=== PATIENT | female | born 1995 | race Caucasian/White ===

== ENCOUNTER 2019-10-19 09:46 | Emergency (ER) | payer OTHER, BC ==
[~2019-10-19] VITALS: Ht 165.1 cm; Wt 79.5 kg
--- NOTE | 2019-10-19 10:30 | ED GU-Female ---
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 Patient was found to have a positive urine test was sent to the emergency room for a OB sonogram. The horse got here does not have sonogram services on the weekends or holidays. Patient's last menstrual period was on August 07, 2019. Expected date of confinement would be May 14, 2020. 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 Hernadez. She denies any other medical problems no cardiovascular or pulmonary renal or GI disease. She did have spotting around Christmastime. She had some discomfort in her low abdomen for the past 2 days. Urinalysis at the urgent care clinic was negative for urinary tract infection. Patient has a child that was born on May 29, 2014. Patient also reports minimal spotting and has taken ibuprofen for the spotting. She has been recommended to follow up with her SEWING DEMONSTRATOR doctor and stop taking any ibuprofen and avoid aspirin. Timing/Duration: yesterday (pain is suprapubic mild) Severity/Quality: mild, aching Location: suprapubic Radiation: none Activities at Onset: none Sexual [place] History: single partner Modifying Factors: Improves With Analgesics (ibuprofen) Associated Symptoms: abdominal pain (minimal discomfort suprapubic area) Allergies and Home Medications Allergies Coded Allergies: No Known Drug Allergies (Unverified , 10/19/19) Patient Home Medication List Home Medication List Reviewed: Yes Review of Systems Review of Systems Constitutional: other (minimal suprapubic discomfort with spotting) EENTM: no symptoms reported Respiratory: no symptoms reported Cardiovascular: no symptoms reported Gastrointestinal: see HPI Genitourinary: other (positive urine test and minimal suprapubic discomfort with spotting last menstrual period August 07, 2019) : Yes Expected Date of Delivery: May 14, 2020 LMP: Aug 07, 2019 (Based on patient's recollection) Musculoskeletal: no symptoms reported Skin: no symptoms reported Psychiatric/Neurological: No Symptoms Reported Endocrine: No Symptoms Reported Hematologic/Lymphatic: No Symptoms Reported Past Ktvruxl-Ftxazn-Hnyttr Hx Patient Social History Alcohol Use: Rarely Uses Recreational Drug Use: No Smoking Status: Never a Smoker Recent Hopitalizations: No Seasonal Allergies Seasonal Allergies: No Past Medical History Surgeries: No Respiratory: No Cardiac: No Neurological: No Hx : 2 Hx Para: 1 Genitourinary: No Gastrointestinal: No Musculoskeletal: No Endocrine: No HEENT: No Cancer: No Psychosocial: No Integumentary: No Blood Disorders: No Physical Exam Vital Signs Vital Signs - First Documented 10/19/19 09:50 Temp 36.8 Pulse 103 Resp 16 B/P (MAP) 156/92 (113) Pulse Ox 98 O2 Delivery Room Air Capillary Refill : Height, Weight, BMI Height: '" Weight: lbs. oz. kg; BMI Method: General Appearance: WD/WN, no apparent distress HEENT: PERRL/EOMI, normal ENT inspection Neck: non-tender, full range of motion Cardiovascular: regular rate, rhythm, no edema Respiratory: chest non-tender, lungs clear Gastrointestinal: normal bowel sounds Genital/Rectal: No blood at urethral meatus, No decreased rectal tone, No heme positive stool, No tenderness, No other (did not feel a genital examination was appropriate at this time patient has minimal discomfort and only minimal spotting and will follow-up patient wanted to have an ultrasound this can be done by Dr. Pink) Rectal: deferred (she did not need a genital or rectal exam) Back: normal inspection, no CVA tenderness Extremities: normal range of motion Neurologic/Psychiatric: cook chief II-XII nml as tested Skin: normal color Lymphatic: no adenopathy Progress/Results/Core Measures Suspected Sepsis SIRS Temperature: Pulse: Respiratory Rate: Blood Pressure / Mean: Results/Orders Lab Results Urine test was positive [id number] testing Micro Results No other labs done we do not have ultrasound services at this time My Orders Orders - ANDREINA AHMADI DO Urine Bedside (10/19/19 10:33) Patient will follow-up with Dr. Pink rest fluids avoid ibuprofen or any other nonsteroidal anti-inflammatory agents no aspirin Medications Given in ED No medications given Vital Signs/I&O 10/19/19 10/19/19 09:50 10:58 Temp 36.8 36.8 Pulse 103 95 Resp 16 16 B/P (MAP) 156/92 (113) 148/88 (113) Pulse Ox 98 98 O2 Delivery Room Air Room Air Capillary Refill : Less than 1 second Progress Note : Time: 10:34 Progress Note 25-year-old 2 para 1 female presents with amenorrhea since last menstrual period of August 07, 2019. Patient was found with a positive test. She had some spotting minimal also had some suprapubic discomfort. Patient's last child was born May [birth year], 2014. Patient will follow- up with Dr. Pink for PROJECT ASSOCIATE services Follow-up with PCP to: Discuss Further Options (patient will follow up with her PROJECT ASSOCIATE Dr. Pink for continued evaluation and possible ultrasound. Patient was advised to rest and clear fluids avoid ibuprofen or nonsteroidal anti- inflammatory agents) Departure Communication (Admissions) Patient has suprapubic discomfort with minimal spotting positive test last menstrual period was August 07, 2019 expected date of confinement is May 14, 2020 per PROJECT ASSOCIATE provider is Dr. Pink and she will follow-up with him patient wanted to have an ultrasound will be to not have sonography available today. Impression Primary Impression: test positive Additional Impression: Suprapubic pain Disposition: HOME, SELF-CARE Condition: Stable Departure-Patient Inst. Decision time for Depature: 10:37 Referrals: ERIC HERNADEZ DO Patient has no need for continued inpatient care she has been discharged to outpatient care with Dr. Hernadez for follow-up for OB services. If he decides to have an ultrasound he can order it. Patient Instructions: Activity During , Symptoms Add. Discharge Instructions: All discharge instructions reviewed with patient and/or family. Voiced understanding. She is excused from work for the next 3 days and will follow-up with her PROJECT ASSOCIATE doctor Copy Copies To 1: ERIC HERNADEZ ANTHONY H DO Oct 19, 2019 10:30
[2019-10-19 10:58] VITALS: BP 148/88
== END 2019-10-19 10:58 | disposition home or self-care (01) ==
LOC: ER FS 09:48
DX: R10.30 Lower abdominal pain, unspecified (principal); Z32.01 Encounter for pregnancy test, result positive
CPT/HCPCS: 84703; 99282

== ENCOUNTER 2019-12-07 13:40 | Emergency (ER) | payer OTHER, BC ==
[~2019-12-07] VITALS: Ht 171.8 cm; Wt 82.7 kg
--- NOTE | 2019-12-07 14:10 | ED General ---
General Stated Complaint: SPOTTING/CRAMPING 11 WKS PREG History of Present Illness Date Seen by Provider: Dec 07, 2019 Time Seen by Provider: 14:07 Initial Comments Patient is a 24-year-old at 11 weeks gestation who comes to the emergency department today complaining of some right-sided pelvic cramping. Patient has noticed an increase in right-sided pelvic cramps over the last 3 days. She assoc iates it with some work she has been doing at her job. Today however she noted some spotting of red blood. She states only when she urinates she notices some blood on the tissue paper. She also complains of some increasing and thickening of vaginal discharge which is not normal. No fever. No severe pain. She has no nausea or vomiting and has been eating and drinking normally. She has been with the same sexual partner for 1 year. Allergies and Home Medications Allergies Coded Allergies: No Known Drug Allergies (Unverified , 10/19/19) Patient Home Medication List Home Medication List Reviewed: Yes Review of Systems Review of Systems Constitutional: no symptoms reported EENTM: no symptoms reported Respiratory: no symptoms reported Cardiovascular: no symptoms reported Genitourinary: see HPI Musculoskeletal: no symptoms reported Skin: no symptoms reported All Other Systems Reviewed Negative Unless Noted: Yes Past Wdzeqya-Zneiws-Bwjeox Hx Patient Social History Recent Foreign Travel: No Contact w/Someone Who Travel: No Recent Hopitalizations: No Seasonal Allergies Seasonal Allergies: No Past Medical History Surgeries: No Respiratory: No Cardiac: No Neurological: No Genitourinary: No Gastrointestinal: No Musculoskeletal: No Endocrine: No HEENT: No Cancer: No Psychosocial: No Integumentary: No Blood Disorders: No Physical Exam Vital Signs Vital Signs - First Documented 12/07/19 14:14 Temp 36.8 Pulse 83 Resp 18 B/P (MAP) 125/81 (96) Pulse Ox 99 Capillary Refill : Height, Weight, BMI Height: '" Weight: lbs. oz. kg; 29.00 BMI Method: General Appearance: No Apparent Distress, WD/WN HEENT: PERRL/EOMI, TMs Normal Neck: Supple Respiratory: Lungs Clear Cardiovascular: Regular Rate, Rhythm Gastrointestinal: Non Tender, Soft Genital/Rectal: Other (vaginal mucosa is moist and uninflamed. Cervical os is visualized to be closed and no bleeding is present. There is some thick yellow discharge emanating from the cervical os. No significant cervical motion tenderness or adnexal tenderness) Neurologic/Psychiatric: Alert, Oriented x3 Skin: Normal Color Progress/Results/Core Measures Suspected Sepsis SIRS Temperature: Pulse: Respiratory Rate: Blood Pressure / Mean: Results/Orders Lab Results Laboratory Tests Test 12/07/19 14:05 12/07/19 14:30 12/07/19 14:54 Range/Units Human Chorionic Gonadotropin, Quant [id number] H <5 MIU/ML Urine Color YELLOW Urine Clarity CLEAR Urine pH 6.0 5-9 Urine Specific [place] <1.005 1.016-1.022 Urine Protein NEGATIVE NEGATIVE Urine Glucose (UA) NEGATIVE NEGATIVE Urine Ketones NEGATIVE NEGATIVE Urine Nitrite NEGATIVE NEGATIVE Urine Bilirubin NEGATIVE NEGATIVE Urine Urobilinogen 0.2 < = 1.0 MG/DL Urine Leukocyte Esterase NEGATIVE NEGATIVE Urine RBC (Auto) NEGATIVE NEGATIVE Urine RBC NONE /HPF Urine WBC NONE /HPF Urine Squamous Epithelial Cells 0-2 /HPF Urine Crystals NONE /LPF Urine Bacteria NONE /HPF Urine Casts NONE /LPF Urine Mucus NEGATIVE /LPF Urine Culture Indicated NO Micro Results Microbiology 12/07/19 Wet Prep - Final, Complete My Orders Orders - ADAN BOOKER DO Urinalysis (12/07/19 13:54) Abo Rh Type (12/07/19 13:54) Hcg,Quantitative (12/07/19 13:54) Chlam Dna Probe (12/07/19 13:54) Neisseria Gonorrhea Swab (12/07/19 13:54) Wet Prep (12/07/19 13:54) Ceftriaxone For Im Use (Rocephin For Im (12/07/19 15:30) Lidocaine 1% Inj 20 Ml (Xylocaine 1% Inj (12/07/19 15:30) Azithromycin Tablet (Zithromax Tablet) (12/07/19 15:30) Vital Signs/I&O 12/07/19 14:14 Temp 36.8 Pulse 83 Resp 18 B/P (MAP) 125/81 (96) Pulse Ox 99 Capillary Refill : Progress Note : Time: 14:10 Progress Note Patient is seen and examined. Pelvic examination was completed and is accompanied by registered nurse. Exam is documented above. No acute findings but some suspicion for cervicitis based on discharge. No bleeding. We'll check urinalysis, type and screen, quantitative hCG. Bedside ultrasound is also completed and revealing for an intrauterine with heart tones in the 150s. 15:30: All results are reviewed. No evidence for UTI. Based on available data, the patient's does not seem to be threatened today. There is some suspicion based on her physical exam for an infectious process which may be the cause of her symptoms. Other causes including dehydration were discussed with the patient. Given the pelvic exam findings, the patient is empirically treated for gonorrhea and Chlamydia in the ER. These tests were collected and sent to the lab. Patient will follow up on results. I recommended that she refrain from sexual activity until her diagnosis is more clear or the tests have returned. 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 All of her questions were answered and she is agreeable to this plan of care. Departure Impression Primary Impression: Pelvic pain affecting Disposition: 01 HOME, SELF-CARE Condition: Improved Departure-Patient Inst. Referrals: NO,LOCAL PHYSICIAN (PCP/Family) Primary Care Physician ADAN BOOKER DO Dec 07, 2019 14:10
[2019-12-07 15:18] LABS: CLARITY,URINE CLEAR; COLOR,URINE YELLOW; GLUCOSE, URINE (UA) NEGATIVE (NEGATIVE); PROTEIN,URINE NEGATIVE (NEGATIVE)
[2019-12-07 15:19] LABS: BILIRUBIN,URINE NEGATIVE (NEGATIVE); KETONES,URINE NEGATIVE (NEGATIVE); LEUKOCYTE ESTERASE ,URINE NEGATIVE (NEGATIVE); NITRITE,URINE NEGATIVE (NEGATIVE); SQUAMOUS EPITHELIAL CELL,UR 0-2 /HPF
[2019-12-07] MEDS ORDERED: cefTRIAXone 250 MG/ML vial (IM ONLY) IM ONE (15:30)
[2019-12-07] MEDS ORDERED: LIDOCAINE 1% INJ 20 ML 20 ML VIAL INJ ONE (15:30)
[2019-12-07] MEDS ORDERED: AZITHROMYCIN 250 MG TAB (ZITHROMAX) PO ONE (15:30)
[2019-12-07 16:10] VITALS: BP 125/81
== END 2019-12-07 16:10 | disposition home or self-care (01) ==
LOC: EDUNIT# 13:40 → ER FS 13:42
DX: O26.891 Other specified pregnancy related conditions, first trimester (principal); R10.2 Pelvic and perineal pain; Z3A.11 11 weeks gestation of pregnancy
CPT/HCPCS: 36415; 81000; 84702; 86900; 86901; 87210; 87491; 87591; 99284

== ENCOUNTER 2019-12-16 07:36 | Emergency (ER) | payer OTHER, BC ==
[~2019-12-16] VITALS: Ht 165 cm; Wt 83.0 kg
[2019-12-16 07:55] VITALS: BP 138/82
--- NOTE | 2019-12-16 08:02 | ED Abdominal Pain ---
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 Stasis me going on for about a week or so. Patient was just seen in the emergency department just a few days ago for vaginal discharge and had a negative evaluation. Patient has also been seen by her WATER TRUCK DRIVER Dr. moore and also advised that she's had normal exams. heart tones today are 158. Patient appears to be describing round ligament pain. We'll get a urinalysis to evaluate for infection and evaluate. Further as needed. Timing/Duration: 5-6 Days Severity/Quality: Mild, Cramping Location: Suprapubic Radiation: No Radiation Activities at Onset: None Allergies and Home Medications Allergies Coded Allergies: No Known Drug Allergies (Unverified , 10/19/19) Patient Home Medication List Home Medication List Reviewed: Yes Review of Systems Review of Systems Constitutional: no symptoms reported EENTM: No Symptoms Reported; No See HPI, No Blurred Vision, No Double Vision, No Eye Pain, No Eye Tearing, No Ear Drainage, No Ear Pain, No Mouth Pain, No Mouth Swelling, No Nose Congestion, No Nose Pain, No Throat Pain, No Throat Swelling, No Other Respiratory: No Symptoms Reported; Denies See HPI, Denies Cough, Denies Orthopnea, Denies Shortness of Air, Denies SOA With Exertion, Denies SOA at Rest, Denies Stridor, Denies Wheezing, Denies Other Cardiovascular: Denies No Symptoms Reported, Denies See HPI, Denies Chest Pain, Denies Edema, Denies Irregular Heart Rate, Denies Lightheadedness, Denies Palpitations, Denies Syncope, Denies Other Gastrointestinal: Abdominal Pain Genitourinary: Denies No Symptoms Reported, Denies See HPI, Denies Burning; Discharge; Denies Drainage, Denies Frequency, Denies Flank Pain, Denies Hematuria, Denies Incontinence; Pain; Denies Urgency, Denies Other Musculoskeletal: No no symptoms reported, No see HPI, No back pain, No gout, No joint pain, No joint swelling, No muscle pain, No muscle stiffness, No muscle cramps, No muscle twitching, No muscle weakness, No neck pain, No other Skin: No no symptoms reported, No see HPI, No change in color, No change in hair/nails, No dryness, No hx of skin cancer, No lesions, No lumps, No pruritus, No rash, No other Past Mmxhzgu-Yhishb-Hquzvo Hx Patient Social History Recent Foreign Travel: No Contact w/Someone Who Travel: No Recent Hopitalizations: No Seasonal Allergies Seasonal Allergies: No Past Medical History Surgeries: No Respiratory: No Cardiac: No Neurological: No Genitourinary: No Gastrointestinal: No Musculoskeletal: No Endocrine: No HEENT: No Cancer: No Psychosocial: No Integumentary: No Blood Disorders: No Physical Exam Vital Signs Vital Signs - First Documented 12/16/19 07:55 Temp 36.7 Pulse 85 Resp 16 B/P (MAP) 138/82 (100) Pulse Ox 100 Capillary Refill : Height/Weight/BMI Height: '" Weight: lbs. oz. kg; 28.00 BMI Method: General Appearance: WD/WN, no apparent distress HEENT: PERRL/EOMI, normal ENT inspection, TMs normal, pharynx normal Neck: non-tender, full range of motion, supple, normal inspection Respiratory: chest non-tender, lungs clear, normal breath sounds, no respiratory distress, no accessory muscle use Cardiovascular: normal peripheral pulses, regular rate, rhythm, no edema, no gallop, no JVD, no murmur Gastrointestinal: normal bowel sounds, non tender, soft, no organomegaly, no pulsatile mass Progress/Results/Core Measures Results/Orders Lab Results Laboratory Tests Test 12/16/19 07:42 Range/Units Urine Color PALE YELLOW Urine Clarity CLEAR Urine pH 6.5 5-9 Urine Specific [place] <=1.005 1.016-1.022 Urine Protein NEGATIVE NEGATIVE Urine Glucose (UA) NEGATIVE NEGATIVE Urine Ketones NEGATIVE NEGATIVE Urine Nitrite NEGATIVE NEGATIVE Urine Bilirubin NEGATIVE NEGATIVE Urine Urobilinogen 0.2 < = 1.0 MG/DL Urine Leukocyte Esterase NEGATIVE NEGATIVE Urine RBC (Auto) NEGATIVE NEGATIVE Urine RBC NONE /HPF Urine WBC NONE /HPF Urine Squamous Epithelial Cells 5-10 /HPF Urine Crystals NONE /LPF Urine Bacteria MODERATE H /HPF Urine Casts NONE /LPF Urine Mucus NEGATIVE /LPF Urine Culture Indicated NO My Orders Orders - ADAN PHAM MD Urinalysis (12/16/19 07:57) Vital Signs/I&O 12/16/19 07:55 Temp 36.7 Pulse 85 Resp 16 B/P (MAP) 138/82 (100) Pulse Ox 100 Progress Progress Note : Progress Note Patient has been declined to have a pelvic exam. Patient states she had a pelvic exam in the ER this past week with negative swabs for any signs of infection. P atient also states she has been seen by her WATER TRUCK DRIVER for the same with a negative exam. Patient states she is here concerning for bilateral cramping. Patient describes her ligament pain. Patient's urinalysis shows that she has moderate bacteria. A come from her vaginal discharge. We will go ahead and treat her with Flagyl and have her follow up with WATER TRUCK DRIVER. Departure Impression Primary Impression: Round ligament pain Additional Impression: Bacterial vaginosis Disposition: HOME, SELF-CARE Condition: Stable Departure-Patient Inst. Referrals: NO,LOCAL PHYSICIAN (PCP/Family) Primary Care Physician Patient Instructions: Bacterial Vaginosis (DC) Add. Discharge Instructions: Encourage by mouth fluids. Sleep on side with legs drawn wraparound pillow. Use heating pads as tolerated. At the pain will route decrease as persist. Tylenol as needed for pain or cramping. Follow-up with your WATER TRUCK DRIVER in 2-3 days. Wear clothing and help support abdomen due to while lifting at work. All discharge instructions reviewed with patient and/or family. Voiced understanding. Scripts Metronidazole (Flagyl) 500 Mg Tablet 500 MG PO BID for 7 Days, #14 TAB 0 Refills Prov: ADAN PHAM MD 12/16/19 ADAN PHAM MD Dec 16, 2019 08:02
[2019-12-16 08:18] LABS: BILIRUBIN,URINE NEGATIVE (NEGATIVE); CLARITY,URINE CLEAR; COLOR,URINE PALE YELLOW; GLUCOSE, URINE (UA) NEGATIVE (NEGATIVE); KETONES,URINE NEGATIVE (NEGATIVE); LEUKOCYTE ESTERASE ,URINE NEGATIVE (NEGATIVE); NITRITE,URINE NEGATIVE (NEGATIVE); PH,URINE 6.5 (5-9); PROTEIN,URINE NEGATIVE (NEGATIVE)
[2019-12-16 08:21] LABS: BACTERIA,URINE MODERATE /HPF
[2019-12-16] MEDS ORDERED: METR500T PO (08:26)
== END 2019-12-16 08:32 | disposition home or self-care (01) ==
LOC: EDUNIT# 07:36 → ER FS 07:38
DX: O26.891 Other specified pregnancy related conditions, first trimester (principal); R10.2 Pelvic and perineal pain; O23.591 Infection of other part of genital tract in pregnancy, first trimester; N76.0 Acute vaginitis; Z3A.12 12 weeks gestation of pregnancy
CPT/HCPCS: 81000

== ENCOUNTER 2020-01-12 18:38 | Emergency (ER) | payer OTHER, BC ==
[~2020-01-12] VITALS: Ht 167 cm; Wt 85.9 kg
[~2020-01-12 18:38] MED LIST: METR500T PO
--- NOTE | 2020-01-12 18:49 | ED General ---
General Stated Complaint: 18 WKS /CRAMPING History of Present Illness Date Seen by Provider: Jan 12, 2020 Time Seen by Provider: 18:48 Initial Comments Patient is a 24 y/o female who is at 18 weeks gestation who comes to the ER c/o abdominal cramping. She has had this problem over the last four weeks or greater but sx worsened over the last two days. Patient was seen in this ER about 1 month earlier for similar presentation. At that time, she had negative gonorrhea and chlamydia testing. This evening, she denies any loss of fluid or bleeding. She describes intermittent pain in the pelvic area that feels crampy. She has no fever. No flank pain. No headaches or vision changes. She states her symptoms are sometimes worse at work where she does have to do heavy lifting. Allergies and Home Medications Allergies Coded Allergies: No Known Drug Allergies (Unverified , 10/19/19) Home Medications Cephalexin 500 Mg Capsule, 500 MG PO QID Prescribed by: ADAN BOOKER on 01/12/201914 Cyclobenzaprine HCl 10 Mg Tablet, 10 MG PO BID Prescribed by: ADAN BOOKER on 01/12/201915 Metronidazole 500 Mg Tablet, 500 MG PO BID Prescribed by: ADAN PHAM on 12/16/19 0826 Patient Home Medication List Home Medication List Reviewed: Yes Review of Systems Review of Systems Constitutional: no symptoms reported EENTM: no symptoms reported Respiratory: no symptoms reported Cardiovascular: no symptoms reported Gastrointestinal: no symptoms reported, other (pelvic cramps) Genitourinary: no symptoms reported : Yes Musculoskeletal: no symptoms reported Skin: no symptoms reported All Other Systems Reviewed Negative Unless Noted: Yes Past Uctlgkx-Pxtvuv-Mrsejg Hx Patient Social History 2nd Hand Smoke Exposure: No Recent Foreign Travel: No Contact w/Someone Who Travel: No Recent Hopitalizations: No Seasonal Allergies Seasonal Allergies: No Past Medical History Surgeries: No Respiratory: No Cardiac: No Neurological: No Genitourinary: No Gastrointestinal: No Musculoskeletal: No Endocrine: No HEENT: No Cancer: No Psychosocial: No Integumentary: No Blood Disorders: No Physical Exam Vital Signs Vital Signs - First Documented 01/12/20 18:45 Temp 36.7 Pulse 83 Resp 18 B/P (MAP) 129/78 (95) Pulse Ox 100 O2 Delivery Room Air Capillary Refill : Height, Weight, BMI Height: '" Weight: lbs. oz. kg; 30.00 BMI Method: General Appearance: No Apparent Distress, WD/WN HEENT: PERRL/EOMI, Moist Mucous Membranes Neck: Full Range of Motion Respiratory: Lungs Clear Cardiovascular: Regular Rate, Rhythm Gastrointestinal: Non Tender, Soft Extremity: Normal Capillary Refill Neurologic/Psychiatric: Alert, Oriented x3 Skin: Normal Color Progress/Results/Core Measures Suspected Sepsis SIRS Temperature: Pulse: Respiratory Rate: Blood Pressure / Mean: Results/Orders Lab Results Laboratory Tests Test 01/12/20 18:50 Range/Units Urine Color YELLOW Urine Clarity CLOUDY H Urine pH 7.5 5-9 Urine Specific [place] 1.015 L 1.016-1.022 Urine Protein NEGATIVE NEGATIVE Urine Glucose (UA) NEGATIVE NEGATIVE Urine Ketones NEGATIVE NEGATIVE Urine Nitrite NEGATIVE NEGATIVE Urine Bilirubin NEGATIVE NEGATIVE Urine Urobilinogen 0.2 < = 1.0 MG/DL Urine Leukocyte Esterase TRACE H NEGATIVE Urine RBC (Auto) NEGATIVE NEGATIVE Urine RBC NONE /HPF Urine WBC 5-10 H /HPF Urine Squamous Epithelial Cells 10-25 H /HPF Urine Crystals NONE /LPF Urine Bacteria LARGE H /HPF Urine Casts NONE /LPF Urine Mucus NEGATIVE /LPF Urine Culture Indicated YES My Orders Orders - ADAN BOOKER DO Urinalysis (01/12/20 18:49) Chlamydia Trachomatis Urine (01/12/20 18:49) Neis Mayo Dna Urine Test (01/12/20 18:49) Urine Culture (01/12/20 18:50) Cephalexin Capsule (Keflex Capsule) (01/12/20 19:15) Vital Signs/I&O 01/12/20 18:45 Temp 36.7 Pulse 83 Resp 18 B/P (MAP) 129/78 (95) Pulse Ox 100 O2 Delivery Room Air Capillary Refill : Progress Note : Time: 19:26 Progress Note Patient is evaluated in the emergency department for intermittent cramping during . Patient does not have loss of blood or fluid. In the ER, she underwent urinalysis and gonorrhea and Chlamydia screens were again collected and sent to lab. Patient was encouraged to do a dirty catch urine so that we could collect gonorrhea and chlamydia. The urine was contaminated with multiple squamous epithelial cells but also multiple bacteria were present. This probably represents contaminated sample which was the intent but the patient is empirically placed on Keflex for treatment of UTI. She is given some Flexeril. I explained to the patient that she should contact her primary OB doctor in the morning and return to the ER if she begins to have any fluid or blood loss or severely worsening symptoms. Patient was agreeable to the plan of care and all of her questions were answered prior to discharge home. Departure Impression Primary Impression: Pelvic pain affecting Disposition: HOME, SELF-CARE Condition: Stable Departure-Patient Inst. Referrals: NO,LOCAL PHYSICIAN (PCP/Family) Primary Care Physician Scripts Cyclobenzaprine HCl (Cyclobenzaprine HCl) 10 Mg Tablet 10 MG PO BID for Cramps, #20 TAB Prov: ADAN BOOKER DO 01/12/20 Cephalexin (Cephalexin) 500 Mg Capsule 500 MG PO QID for 10 Days, #40 CAP Prov: ADAN BOOKER DO 01/12/20 ADAN BOOKER DO Jan 12, 2020 18:49
[2020-01-12 19:00] LABS: BACTERIA,URINE LARGE /HPF; BILIRUBIN,URINE NEGATIVE (NEGATIVE); CLARITY,URINE CLOUDY; COLOR,URINE YELLOW; GLUCOSE, URINE (UA) NEGATIVE (NEGATIVE); KETONES,URINE NEGATIVE (NEGATIVE); LEUKOCYTE ESTERASE ,URINE TRACE (NEGATIVE); NITRITE,URINE NEGATIVE (NEGATIVE); PH,URINE 7.5 (5-9); PROTEIN,URINE NEGATIVE (NEGATIVE)
[2020-01-12] MEDS ORDERED: CEPH500C PO (19:15)
[2020-01-12] MEDS ORDERED: CEPHALEXIN 250 MG (KEFLEX) CAP PO ONE (19:15)
[2020-01-12] MEDS ORDERED: CYCL10TA9 PO (19:16)
[2020-01-12 19:23] VITALS: BP 129/78
== END 2020-01-12 19:23 | disposition home or self-care (01) ==
LOC: EDUNIT# 18:38 → ER FS 18:41
DX: O26.892 Other specified pregnancy related conditions, second trimester (principal); R10.2 Pelvic and perineal pain; Z3A.18 18 weeks gestation of pregnancy
CPT/HCPCS: 36415; 81000; 87088; 87491; 87591; 99283

== ENCOUNTER 2020-02-07 01:09 | Emergency (ER) | payer OTHER, BC ==
[~2020-02-07] VITALS: Ht 157.4 cm; Wt 88.0 kg
[~2020-02-07 01:09] MED LIST changes: +CEPH500C PO; +CYCL10TA9 PO
[2020-02-07 01:10] VITALS: BP 124/77
--- OUTSIDE RECORDS SUMMARY | 2020-02-07 01:18 | XMS REPORT | Continuity of Care Document ---
Author Organization Unknown Address Unknown Phone Unavailable Allergies Active Description Code Type Severity Reaction Onset Reported/Identified Relationship to Patient Clinical Status Yes No Known Drug Allergies [id number] Drug Allergy Unknown N/A 10/19/2019 Medications There is no data. Problems Date Dx Coded Attending Type Code Diagnosis Diagnosed By 10/19/2019 ANDREINA AHMADI DO Ot R10.30 LOWER ABDOMINAL PAIN, UNSPECIFIED 10/19/2019 ANDREINA AHMADI DO Ot Z32.01 ENCOUNTER FOR TEST, RESULT POS 10/22/2019 GALDINO ANDREINA POWER Ot R10.30 LOWER ABDOMINAL PAIN, UNSPECIFIED 10/22/2019 GALDINO ANDREINA POWER Ot Z32.01 ENCOUNTER FOR TEST, RESULT POS 12/07/2019 [facility] O26.891 OTH RELATED CONDITIONS, FIRST 12/07/2019 [facility] Ot R10 .2 PELVIC AND PERINEAL PAIN 12/07/2019 [facility] Ot Z3A.11 11 WEEKS GESTATION OF 12/12/2019 [facility] Ot O26.891 OTH RELATED CONDITIONS, FIRST 12/12/2019 [facility] Ot R10 .2 PELVIC AND PERINEAL PAIN 12/12/2019 [facility] Ot Z3A.11 11 WEEKS GESTATION OF 12/16/2019 Ot N76.0 ACUT E VAGINITIS 12/16/2019 Ot O23.591 IN FECTION OTH PRT GENITL TRCT IN PREGNAN 12/16/2019 Ot O26.891 OT H RELATED CONDITIONS, FIRST 12/16/2019 Ot R10.2 PELV IC AND PERINEAL PAIN 12/16/2019 Ot Z3A.12 12 WEEKS GESTATION OF 01/12/2020 [facility] Ot O26.892 OTH RELATED CONDITIONS, SECOND 01/12/2020 [facility] Ot R10 .2 PELVIC AND PERINEAL PAIN 01/12/2020 ADAN BOOKER DO Ot Z3A.18 18 WEEKS GESTATION OF 01/14/2020 ADAN BOOKER DO Ot O26.892 OTH RELATED CONDITIONS, SECOND 01/14/2020 ADAN BOOKER DO Ot R10 .2 PELVIC AND PERINEAL PAIN 01/14/2020 ADAN BOOKER DO Ot Z3A.18 18 WEEKS GESTATION OF Procedures There is no data. Results Test Result Range CULTURE, URINE - 06/02/19 07:47 CULTURE, URINE, ROUTINE SEE NOTE NRG SUREPATH PAP RFX HPV mRNA E6/E7 - 16:13 CLINICAL INFORMATION: NRG LMP: NRG PREV. PAP: NRG PREV. BX: NRG SOURCE: Cervix NRG STATEMENT OF ADEQUACY: NRG INTERPRETATION/RESULT: NRG REPORTING ANALYST: NRG COMMENT NRG SUREPATH PAP RFX HPV mRNA E6/E7 - 13:21 CLINICAL INFORMATION: NRG LMP: NRG PREV. PAP: NRG PREV. BX: NRG SOURCE: Cervix NRG STATEMENT OF ADEQUACY: NRG INTERPRETATION/RESULT: NRG REPORTING ANALYST: NRG COMMENT NRG RUBELLA IMMUNE STATUS - 10/22/19 15:09 RUBELLA ANTIBODY (IGG) <0.90 index NRG Microscopic examination by wet preparati on - 12/07/19 14:05 WET PREP RESULTS NUMEROUS WBC'S OBSERVED NRG Chlamydia trachomatis DNA detection by p robe and signal amplification method - 12/07/19 14:05 Chlamydia trachomatis DNA detection by p robe and target amplification method Not Detected Not Detected Neisseria gonorrhoeae DNA detection by p robe and signal amplification method - 12/07/19 14:05 Gonorrhea amp DNA-urine Not Detected No t Detected Serum or plasma choriogonadotropin measu rement (units/volume) - 12/07/19 14:30 Serum or plasma choriogonadotropin measurement (units/ volume) 108051 m[iU]/mL <5 Complete urinalysis with reflex to cultu re - 12/07/19 14:54 Urine color determination YELLOW NRG Urine clarity determination CLEAR NR G Urine pH measurement by test strip 6.0 5-9 Specific gravity of urine by test strip < 1.016-1.022 Urine protein assay by test strip, semi-quantitative NEGATIVE NEGATIVE Urine glucose detection by automated test strip NE GATIVE NEGATIVE Erythrocytes detection in urine sediment by light micr oscopy NEGATIVE NEGATIVE Urine ketones detection by automated test strip NE GATIVE NEGATIVE Urine nitrite detection by test strip NEGATIVE NEGATIVE Urine total bilirubin detection by test strip NEGA TIVE NEGATIVE Urine urobilinogen measurement by automated test strip (mass/volume) 0.2 mg/dL < = 1.0 Urine leukocyte esterase detection by dipstick NEG ATIVE NEGATIVE Automated urine sediment erythrocyte cou nt by microscopy (number/high power field) NONE NRG Automated urine sediment leukocyte count by microscopy (number/high power field) NONE NRG Bacteria detection in urine sediment by light microsco py NONE NRG Squamous epithelial cells detection in u rine sediment by light microscopy 0-2 NRG Crystals detection in urine sediment by light microsco py NONE NRG Casts detection in urine sediment by light microscopy NONE NRG Mucus detection in urine sediment by light microscopy NEGATIVE NRG Complete urinalysis with reflex to culture NO NRG ABO+Rh group - 12/07/19 15:00 WRISTBAND NUMBER [id number] NRG ABO+Rh group BP NRG Complete urinalysis with reflex to cultu re - 01/12/20 18:50 Urine color determination YELLOW NRG Urine clarity determination CLOUDY NR G Urine pH measurement by test strip 7.5 5-9 Specific gravity of urine by test strip 1.015 1.016-1.022 Urine protein assay by test strip, semi-quantitative NEGATIVE NEGATIVE Urine glucose detection by automated test strip NE GATIVE NEGATIVE Erythrocytes detection in urine sediment by light micr oscopy NEGATIVE NEGATIVE Urine ketones detection by automated test strip NE GATIVE NEGATIVE Urine nitrite detection by test strip NEGATIVE NEGATIVE Urine total bilirubin detection by test strip NEGA TIVE NEGATIVE Urine urobilinogen measurement by automated test strip (mass/volume) 0.2 mg/dL < = 1.0 Urine leukocyte esterase detection by dipstick TRA CE NEGATIVE Automated urine sediment erythrocyte cou nt by microscopy (number/high power field) NONE NRG Automated urine sediment leukocyte count by microscopy (number/high power field) [HPF] NRG Bacteria detection in urine sediment by light microsco py LARGE NRG Squamous epithelial cells detection in u rine sediment by light microscopy 10-25 NRG Crystals detection in urine sediment by light microsco py NONE NRG Casts detection in urine sediment by light microscopy NONE NRG Mucus detection in urine sediment by light microscopy NEGATIVE NRG Complete urinalysis with reflex to culture YES NRG Bacterial urine culture - 01/12/20 18:50 Bacterial urine culture NG NRG Chlamydia DNA amp probe, urine - 0 18:50 Chlamydia DNA amp probe, urine Not Detected Not Detected Urine Neisseria gonorrhoeae DNA assay - 01/12/20 18:50 Gonorrhea amp DNA-urine Not Detected No t Detected Encounters ACCT No. Visit Date/Time Discharge Status Pt. Type Provider Facility Loc./Unit Complaint [id number] 01/21/2020 14:45:00 01/21/2020 23:59:5 9 [facility] [id number] 10/22/2019 13:15:00 Document Registration [id number] 07/17/2019 16:00:00 Document Registration [id number] 06/02/2019 07:30:00 Document Registration [id number] 01/12/2020 18:41:00 020 19:23:00 DIS Emergency ADAN BOOKER DO Via [facility] ER FS 18 WKS /CRAMPIN G [id number] 12/07/2019 13:42:00 020 16:10:00 DIS Emergency ADAN BOOKER DO Via [facility] ER FS SPOTTING/CRAMPING 11 WK S PREG [id number] 10/19/2019 09:48:00 020 10:58:00 DIS Emergency ANDREINA AHMADI DO Via [facility] ER FS ABD PAIN - JUST FOUND O UT SHE WAS PREG [id number] 12/16/2019 07:38:00 Document Registration [id number] 10/12/2013 19:27:00 4 20:51:00 DIS Emergency
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
== END 2020-02-07 01:32 | disposition home or self-care (01) ==
LOC: EDUNIT# 01:09 → ER FS 01:13
DX: T74.11XA Adult physical abuse, confirmed, initial encounter (principal); O26.892 Other specified pregnancy related conditions, second trimester; R10.33 Periumbilical pain; Z3A.21 21 weeks gestation of pregnancy; Y04.2XXA Assault by strike against or bumped into by another person, initial encounter; Y07.499 Other family member, perpetrator of maltreatment and neglect

== ENCOUNTER 2020-04-17 16:42 | Emergency (ER) | payer OTHER, BC, MEDICAID ==
[~2020-04-17] VITALS: Ht 165 cm; Wt 95.0 kg
--- NOTE | 2020-04-17 17:00 | ED GI ---
General Stated Complaint: ABD CRAMPS/ Source of Information: Patient Exam Limitations: No Limitations History of Present Illness Date Seen by Provider: Apr 17, 2020 Time Seen by Provider: 17:00 Initial Comments Patient is a 24-year-old at 31 weeks and 6 days who presents with abdominal cramping onset about noon today. Denies any lower pelvic pain or pressure, denies loss of fluid or vaginal bleeding. Denies uterine contractions. States that she's been on her feet a lot and walking a lot while at work and this she believes started the cramping. Her OB doctor is Dr. Hernadez and she plans to deliver her child in [place]. Allergies and Home Medications Allergies Coded Allergies: No Known Drug Allergies (Unverified , 10/19/19) Home Medications Cephalexin 500 Mg Capsule, 500 MG PO QID Prescribed by: ADAN BOOKER on 01/12/201914 Cyclobenzaprine HCl 10 Mg Tablet, 10 MG PO BID Prescribed by: ADAN BOOKER on 01/12/201915 Metronidazole 500 Mg Tablet, 500 MG PO BID Prescribed by: ADAN PHAM on 12/16/19 0826 Patient Home Medication List Home Medication List Reviewed: Yes Review of Systems Review of Systems Constitutional: No dizziness, No fever, No malaise, No weakness Respiratory: Denies Cough, Denies Shortness of Air Cardiovascular: Denies Chest Pain; Edema; Denies Palpitations, Denies Syncope Gastrointestinal: Abdominal Pain (cramping); Denies Nausea, Denies Vomiting Genitourinary: Denies Drainage, Denies Frequency, Denies Flank Pain, Denies Hematuria, Denies Pain, Denies Urgency; Other (denies pelvic pain, uterine contractions, vaginal bleeding or loss of fluid.) Past Ptbccux-Nmolrn-Gpjume Hx Past Med/Social Hx: Reviewed Nursing Past Med/Soc Hx Patient Social History 2nd Hand Smoke Exposure: No Recent Foreign Travel: No Contact w/Someone Who Travel: No Recent Hopitalizations: No Seasonal Allergies Seasonal Allergies: No Past Medical History Surgeries: No Respiratory: No Cardiac: No Neurological: No Genitourinary: No Gastrointestinal: No Musculoskeletal: No Endocrine: No HEENT: No Cancer: No Psychosocial: No Integumentary: No Blood Disorders: No Physical Exam Vital Signs Capillary Refill : Height/Weight/BMI Height: '" Weight: lbs. oz. kg; 35.00 BMI Method: General Appearance: WD/WN, no apparent distress Gastrointestinal: non tender, soft; No guarding, No rebound, No tenderness; other (size c/w/d. ballotable, not engaged in pelvis.) Departure Impression Primary Impression: Abdominal pain during Qualified Codes: O26.893 - Other specified related conditions, third trimester; R10.9 - Unspecified abdominal pain Disposition: HOME, SELF-CARE Condition: Stable Departure-Patient Inst. Referrals: NO,LOCAL PHYSICIAN (PCP/Family) Primary Care Physician Patient Instructions: Stomach Pain Later in Add. Discharge Instructions: You are advised to go to [facility] to the Labor and Delivery department. We notified them you are on your way ANGIE CHAN DO Apr 17, 2020 17:00
[2020-04-17 17:04] VITALS: BP 137/71
--- NOTE | 2020-04-17 17:08 | NUR ---
Report called to Xavier GILMORE in L&D of patient discharge and plan to be driven to [facility] for assessment of abd cramping pain since noon. Denies bleeding or loss of fluid. Pt states, "I was unsure where to go to see if I am in labor as unsure about this cramping." Dr Kapoor in to see patient promptly after placed in room. Pt denies pressure or pain in vaginal area.
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
== END 2020-04-17 17:09 | disposition home or self-care (01) ==
LOC: EDUNIT# 16:42 → ER FS 16:43
DX: O26.893 Other specified pregnancy related conditions, third trimester (principal); R10.9 Unspecified abdominal pain; Z3A.31 31 weeks gestation of pregnancy
CPT/HCPCS: 99282

== ENCOUNTER 2020-06-08 17:33 | Inpatient (IN) | payer OTHER, BC, MEDICAID ==
[~2020-06-08] VITALS: Ht 165 cm; Wt 95.0 kg
[2020-06-08] VITALS (26 sets, daily range): BP systolic 85–175; BP diastolic 44–95
--- NOTE | 2020-06-08 17:40 | NUR ---
PORTIA LOPEZ presented to unit ambulatory from home, accompanied by boyfriend, for INDUCTION. PORTIA LOPEZ weighed, gowned, voided, and to bed. EFHM and TOCO applied, VS taken. PORTIA LOPEZ oriented to bed controls, call light, TV, heat, and A/C controls.
[2020-06-08] MEDS ORDERED: D5 LR IV SOLUTION 1,000 ML IV ONE (18:00)
[2020-06-08] MEDS ORDERED: PREN-142 PO (18:22)
[2020-06-08 18:53] LABS: BASOPHILS % (AUTO) 0 % (0-10); EOSINOPHILS # (AUTO) 0.1 10^3/uL (0.0-0.3); EOSINOPHILS % (AUTO) 0 % (0-10); HEMATOCRIT 41 % (35-52); HEMOGLOBIN 14.1 G/DL (11.5-16.0); LYMPHOCYTES # (AUTO) 2.3 X 10^3 (1.0-4.0); LYMPHOCYTES % (AUTO) 18 % (12-44); MEAN CORPUSCULAR HEMOGLOBIN 30 PG (25-34); MEAN CORPUSCULAR HGB CONC 34 G/DL (32-36); MEAN CORPUSCULAR VOLUME 87 FL (80-99); MEAN PLATELET VOLUME 9.9 FL (7.4-10.4); MONOCYTES # (AUTO) 0.9 X 10^3 (0.0-1.0); MONOCYTES % (AUTO) 7 % (0-12); NEUTROPHILS % (AUTO) 75 % (42-75); PLATELET COUNT 306 10^3/uL (130-400); WHITE BLOOD COUNT 13.2 10^3/uL (4.3-11.0)
[2020-06-08] MEDS: D5 LR IV SOLUTION 1,000 ML IV SCH (19:29)
[2020-06-08] MEDS ORDERED: LACTATED RINGERS 1,000 ML IV SCH (19:31)
[2020-06-08] MEDS ORDERED: MISOPROSTOL 100 MCG (CYTOTEC) TAB PO ONE (19:45)
[2020-06-08] MEDS ORDERED: MISOPROSTOL 100 MCG (CYTOTEC) TAB ONE (20:08)
[2020-06-08] MEDS ORDERED: fentaNYL 2 mcg/ml BUPIVA 0.125 100 ML ONE (21:02)
[2020-06-08] MEDS ORDERED: fentaNYL INJECTION 100 MCG/2 ML AMP ONE (21:25)
[2020-06-08] MEDS ORDERED: CATHETER FLUSH 10 ML SYR IV SCH (22:00)
[2020-06-08] MEDS ORDERED: LACTATED RINGERS 1,000 ML IV ONE (22:22)
[2020-06-08] MEDS ORDERED: fentaNYL 2 mcg/ml BUPIVA 0.125 100 ML IV SCH (22:22)
--- NOTE | 2020-06-08 22:24 | NUR ---
pt starting to feel lightheaded, bp 80's/50's ephedrine pulled, pt states she is starting to feel a little better. Ephedrine dose held at this time. Fluid bolus infusing
[2020-06-08] MEDS ORDERED: NALOXONE 0.4 MG/ML 1 ML (NARCAN) VIAL IV PRN (22:30)
[2020-06-08] MEDS ORDERED: ONDANSETRON 4 MG/2 ML (SDV) Z0FRAN IV PRN (22:30)
[2020-06-08] MEDS ORDERED: CATHETER FLUSH 10 ML SYR IV PRN (22:30)
--- NOTE | 2020-06-08 23:05 | History & Physical-OB/GYN ---
History of Present Illness History of Present Illness Reason for visit/HPI Ms. Parish, A0 at 39 2/7 weeks, presents for cervical ripening and induction of labor Date of Admission Jun 08, 2020 at 17:33 Date Seen by a Provider: Jun 08, 2020 Time Seen by a Provider: 19:30 I consulted on this patient on 06/08/20 22:59 Attending Physician Best Hernadez DO Admitting Physician Best Hernadez DO Consult Allergies and Home Medications Allergies Coded Allergies: No Known Drug Allergies (Unverified , 10/19/19) Patient Home Medication List Home Medication List Reviewed: Yes Past Mytmmjx-Gxcerf-Nhfgbl Hx Patient Social History Marrital Status: single Number of Children: 1 Number of living children: 1 Employed/Student: employed Alcohol Use: Denies Use Recreational Drug Use: No Smoking Status: Never a Smoker 2nd Hand Smoke Exposure: No Physical Abuse Screen: No Sexual Abuse: No Recent Foreign Travel: No Contact w/other who traveled: No Recent Hopitalizations: No Recent Infectious Disease Expo: No Immunizations Up To Date Pediatric: Yes Seasonal Allergies Seasonal Allergies: No Surgeries No Respiratory No Cardiovascular No Neurological No Reproductive System Expected Date of Delivery: Jun 13, 2020 Hx : 2 Hx Para: 1 Hx Total # of Abortions (Spona: 0 Hx Reproductive Disorders: No Sexually Transmitted Disease: Yes (History of Syphilis--treated) HIV/AIDS: No Genitourinary No Gastrointestinal No Musculoskeletal No Endocrine History of Endocrine Disorders: No HEENT History of HEENT Disorders: No Cancer No Psychosocial History of Psychiatric Problem: No Integumentary History of Skin or Integumenta: No Blood Transfusions History of Blood Disorders: No Adverse Reaction to a Blood Tr: No Family Medical History Family Hx: Patient reports no known family medical history. Review of Systems Constitutional: see HPI Physical Exam Physical Exam Vital Signs Vital Signs Date Time Temp Pulse Resp B/P (MAP) Pulse Ox O2 Delivery O2 Flow Rate FiO2 06/08/20 18:52 36.4 103 18 97 Room Air Capillary Refill : Less Than 3 Seconds Labs Laboratory Tests 06/08/20 18:15: White Blood Count 13.2H, Red Blood Count 4.75, Hemoglobin 14.1, Hematocrit 41, Mean Corpuscular Volume 87, Mean Corpuscular Hemoglobin 30, Mean Corpuscular Hemoglobin Concent 34, Red Cell Distribution Width 13.8, Platelet Count 306, Mean Platelet Volume 9.9, Neutrophils (%) (Auto) 75, Lymphocytes (%) (Auto) 18, Monocytes (%) (Auto) 7, Eosinophils (%) (Auto) 0, Basophils (%) (Auto) 0, Neutrophils # (Auto) 10.0H, Lymphocytes # (Auto) 2.3, Monocytes # (Auto) 0.9, Eosinophils # (Auto) 0.1, Basophils # (Auto) 0.0 General Appearance: No Apparent Distress, WD/WN Respiratory: Chest Non Tender, Lungs Clear, Normal Breath Sounds Cardiovascular: Regular Rate, Rhythm, No Murmur Abdominal: normal bowel sounds, non tender Labia: WNL Vagina: WNL Cervix: WNL Cervix OS: open (3 cm) Uterus: WNL, Enlarged (Gravid) Extremity: Normal Range of Motion, Non Tender, No Calf Tenderness Assessment/Plan Assessment and Plan Assessment: Intrauterine at 39 2/7 weeks Plan: Cytotec cervical ripening followed by Pitocin Induction. AROM. Epidural for antepartum pain management. Vaginal delivery expected Admission Diagnosis Admission Status: Inpatient Order (span 2 midnights) Reason for Inpatient Admission: Cytotect Cervical Ripening at 39 2/7 weeks Clinical Quality Measures DVT/VTE Risk/Contraindication: Risk Factor Score Per Nursin RFS Level Per Nursing on Admit: 1=Low/No VTE BEST MILNER DO Jun 08, 2020 23:05
[2020-06-08] MEDS ORDERED: MISOPROSTOL 100 MCG (CYTOTEC) TAB PO SCH (23:45)
[2020-06-09] VITALS (22 sets, daily range): BP systolic 93–169; BP diastolic 51–85
[2020-06-09] MEDS ORDERED: OXYTOCIN PRE-MIX DRIP 500 ML IV ONE (00:06)
[2020-06-09] MEDS ORDERED: OXYTOCIN PRE-MIX DRIP 500 ML IV SCH ×2 (00:17→04:01)
[2020-06-09] MEDS: D5 LR IV SOLUTION 1,000 ML IV SCH (01:35)
[2020-06-09] MEDS ORDERED: LIDOCAINE 1% INJ 20 ML 20 ML VIAL ONE ×2 (02:48→02:49)
--- NOTE | 2020-06-09 04:07 | OB Labor & Delivery Record ---
Vag Delivery Note Vag Delivery Note Date of Delivery: 06/09/20 Preoperative Diagnosis: Xavier Parish is a (24 /Para 2 / 1,Gestational Age (wks)39 3/7 weeks Postoperative Diagnosis: Same Surgeon: ERIC CRUZ Electrical Maintenance Engineer: [None] Anesthesia: [Epidural and Local] Delivery Type: [Normal Spontaneous Vaginal Delivery with Midline Episiotomy and Standard Repair] Findings: [Male] Viable [Male] infant, apgars [8, 9], weight [8 lb 3 oz] Lacerations: Midline Episiotomy Intact placenta with 3 vessel cord. No nuchal cord, body cord or shoulder dystocia Estimated Blood Loss: [300] ml Complications: None Condition: Stable Description of Procedure: The patient is a 24 year old female who presented [cervical ripening]. She was admitted and informed consent was obtained. Her labor course was unremarkable. She progressed to complete dilatation and began to push. She was then set up for delivery. The infant's head was delivered atraumatically in the [YOAN] position. The shoulders and remainder of the 's body were then delivered without difficulty. Upon delivery, the head was held below the level of the perineum and the mouth and nares were bulb suctioned. The cord was doubly clamped and cut and the infant was handed off to the pediatric staff where NRP protocol was followed. An intact placenta with 3-vessel cord delivered via Bella and there was found to be minimal bleeding.~ Vigorous fundal massage was performed and the fundus was found to be firm. IV oxytocin was given. Examination of the vagina and perineum revealed just a midline episiotomy with no laceration extension, repaired in the usual fashion with 2-0 and 3-0 vicryl suture. Following the repair, sponge, instrument and needle counts were correct. Mom and baby were both in stable condition in the labor suite. Vitals - Labs Vital Signs - I&O Vital Signs Date Time Temp Pulse Resp B/P (MAP) Pulse Ox O2 Delivery O2 Flow Rate FiO2 06/09/20 02:05 89 18 169/60 (96) Room Air 06/09/20 01:50 99 18 125/69 (87) Room Air 06/09/20 01:35 88 18 123/73 (90) 06/09/20 01:20 83 18 102/65 (77) 9/8/20 01:05 36.0 87 18 115/73 (87) 06/09/20 00:35 78 18 93/51 (65) 06/09/20 00:15 89 18 109/59 (76) 06/09/20 00:00 72 18 118/52 (74) 06/08/20 23:45 71 18 113/59 (77) 06/08/20 23:30 93 18 114/56 (75) 06/08/20 23:05 75 18 99/55 (70) 98 06/08/20 23:00 75 18 96/46 (63) 98 06/08/20 22:55 88 18 94/56 (69) 98 06/08/20 22:50 72 18 90/44 (59) 98 06/08/20 22:45 82 18 100/54 (69) 98 06/08/20 22:35 93 18 90/54 (66) 98 06/08/20 22:30 74 18 96/52 (67) 100 06/08/20 22:25 36.0 73 18 85/47 (60) 100 06/08/20 22:23 62 18 85/50 (62) 100 06/08/20 22:20 54 18 87/50 (62) 100 06/08/20 22:15 69 18 87/53 (64) 100 06/08/20 22:10 62 18 94/51 (65) 100 06/08/20 22:05 77 18 109/55 (73) 100 06/08/20 21:58 127 18 128/60 (82) 100 06/08/20 21:53 113 18 127/80 (96) 100 06/08/20 21:47 93 18 137/79 (98) 100 06/08/20 21:44 96 18 145/86 (105) 100 06/08/20 21:39 96 18 137/95 (109) 100 06/08/20 21:36 96 18 164/73 (103) 100 06/08/20 21:33 89 18 175/70 (105) 100 06/08/20 21:25 97 18 159/66 (97) 06/08/20 21:05 88 18 131/78 (95) 06/08/20 20:25 83 18 122/66 (84) 06/08/20 18:52 36.4 103 18 97 Room Air Labs Laboratory Tests 06/08/20 18:15: White Blood Count 13.2H, Red Blood Count 4.75, Hemoglobin 14.1, Hematocrit 41, Mean Corpuscular Volume 87, Mean Corpuscular Hemoglobin 30, Mean Corpuscular Hemoglobin Concent 34, Red Cell Distribution Width 13.8, Platelet Count 306, Mean Platelet Volume 9.9, Neutrophils (%) (Auto) 75, Lymphocytes (%) (Auto) 18, Monocytes (%) (Auto) 7, Eosinophils (%) (Auto) 0, Basophils (%) (Auto) 0, Neutrophils # (Auto) 10.0H, Lymphocytes # (Auto) 2.3, Monocytes # (Auto) 0.9, Eosinophils # (Auto) 0.1, Basophils # (Auto) 0.0 ERIC CRUZ DO Jun 09, 2020 04:07
[2020-06-09] MEDS ORDERED: TETANUS,DIPTH,PERTUSS P/F (BOOSTRIX) 0.5 ML VIAL IM ONE (04:15)
[2020-06-09] MEDS ORDERED: DIBUCAINE (NUPERCAINAL) 1% OINT 30 GM TOP PRN (04:15)
[2020-06-09] MEDS ORDERED: BENZOCAINE/MENTHOL (DERMOPLAST) 60 ML CAN TP PRN (04:15)
[2020-06-09] MEDS ORDERED: WITCH HAZEL(TUCKS) 40 EA JAR TOP PRN (04:15)
[2020-06-09] MEDS ORDERED: MEASLES,MUMPS,RUBELLA 1 EA INJ SQ ONE (04:15)
[2020-06-09] MEDS: IBUPROFEN 800 MG (MOTRIN) TAB PO SCH ×3 (04:36→20:46)
[2020-06-09] MEDS: ACETAMINOPHEN 500 MG TAB (TYLENOL) PO SCH ×3 (04:36→18:01)
--- NOTE | 2020-06-09 05:00 | NUR ---
pt c/o pain in perineum. Ice pack applied.
--- NOTE | 2020-06-09 05:49 | NUR ---
Pericare completed. ff 1 below. light rubra noted. pad changed, panties applied. pt assisted to w'c and taken down to 312. Pt denies urge to void at this time. Pt assisted into bed. orientated to room. info papers discussed. Pt denies any needs at this time. Will continue to monitor.
[2020-06-09] MEDS ORDERED: CATHETER FLUSH 10 ML SYR IV SCH (06:00)
--- NOTE | 2020-06-09 07:05 | NUR ---
Pt up to the bathroom. Positive void. pericare completed. pt assisted back to bed. Denies any problems at this time.
--- NOTE | 2020-06-09 08:25 | NUR ---
SALINE CLOCK D/C'ED. SITE CLEAR. EATING BREAKFAST.
--- NOTE | 2020-06-09 09:00 | NUR ---
A.M. ASSESSMENT COMPLETED. VSS. CARING FOR IN ROOM.
[2020-06-09] MEDS: PRENATAL VITAMIN 1 EA TAB PO SCH (09:23)
[2020-06-09] MEDS: DOCUSATE SODIUM 100 MG (COLACE) CAP PO SCH ×2 (09:23→20:46)
--- NOTE | 2020-06-09 12:00 | NUR ---
CONTINUES TO CARE FOR IN ROOM. TAKING BOTTLE WELL.
--- NOTE | 2020-06-09 17:51 | NUR ---
EATING STORK MEAL. CARING FOR INFANT IN ROOM. PT CONCERNED ABOUT NOT HAVING A BM YET. PT REASSURED AGAIN. NURSERY RN WILL COME VISIT WITH PT. MMR AND TDAP VACCINES GIVEN.
[2020-06-10 01:40] VITALS: BP 104/62
[2020-06-10] MEDS: ACETAMINOPHEN 500 MG TAB (TYLENOL) PO SCH ×3 (01:40→14:20)
[2020-06-10] MEDS: IBUPROFEN 800 MG (MOTRIN) TAB PO SCH ×2 (04:18→11:54)
[2020-06-10] MEDS ORDERED: ACET-93 PO (06:50)
[2020-06-10] MEDS ORDERED: IBUP-1780 PO (06:50)
[2020-06-10] MEDS ORDERED: OXYC5TAB96 PO (06:50)
[2020-06-10] MEDS ORDERED: DCS100C PO (06:50)
[2020-06-10 06:54] LABS: BASOPHILS % (AUTO) 0 % (0-10); EOSINOPHILS # (AUTO) 0.1 10^3/uL (0.0-0.3); EOSINOPHILS % (AUTO) 1 % (0-10); HEMATOCRIT 39 % (35-52); HEMOGLOBIN 12.9 G/DL (11.5-16.0); LYMPHOCYTES # (AUTO) 3.7 X 10^3 (1.0-4.0); LYMPHOCYTES % (AUTO) 30 % (12-44); MEAN CORPUSCULAR HEMOGLOBIN 30 PG (25-34); MEAN CORPUSCULAR HGB CONC 34 G/DL (32-36); MEAN CORPUSCULAR VOLUME 89 FL (80-99); MONOCYTES # (AUTO) 0.7 X 10^3 (0.0-1.0); MONOCYTES % (AUTO) 6 % (0-12); NEUTROPHILS # (AUTO) 7.6 X 10^3 (1.8-7.8); NEUTROPHILS % (AUTO) 63 % (42-75); PLATELET COUNT 251 10^3/uL (130-400); WHITE BLOOD COUNT 12.1 10^3/uL (4.3-11.0)
--- NOTE | 2020-06-10 06:58 | Discharge Summary ---
Diagnosis/Chief Complaint Date of Admission Jun 08, 2020 at 17:33 Date of Discharge June 10, 2020 Discharge Date: Jun 10, 2020 Discharge Time: 08:00 Admission Diagnosis Admission Diagnosis Intrauterine at 39 2/7 weeks Discharge Diagnosis Intrauterine at 39 2/7 weeks--delivered 2. Positive RPR Reason Hospital Visit Ms. Parish, A0 at 39 2/7 weeks, presents for cervical ripening and induction of labor Discharge Summary Hospital Course Was the Problem List Reviewed?: Yes Hospital Course Ms. Parish, A0 at 39 2/7 weeks, was admitted for Cytotec Cervical Ripening followed by Pitocin Induction. I artificially rupture her membranes. She received an epidural for antepartum pain management. She progressed to complete and after a short course of pushing delivered a healthy viable . The remainder of her hospitalization was remarkable for a Positive RPR with a 1:8 Titer. She was given IM antibiotics. We will have her follow up in the office in two days for a more antibiotics. The remainder of her hospitalization was unremarkable. I will discharge her to home with instructions, prescriptions, and a follow up appointment. Labs Laboratory Tests 06/08/20 18:15: White Blood Count 13.2H, Neutrophils # (Auto) 10.0H, Syphilis Serology ReactiveH , Rapid Plasma Reagin 1:8H 06/10/20 06:23: Procedures None. Discharge Physical Examination Allergies: Coded Allergies: No Known Drug Allergies (Unverified , 10/19/19) Vitals & I&Os Vital Signs Date Time Temp Pulse Resp B/P (MAP) Pulse Ox O2 Delivery O2 Flow Rate FiO2 06/10/20 01:40 36.5 73 18 104/62 (76) 98 Room Air General Appearance: Alert, Oriented X3, Cooperative HEENT: Atraumatic Cardiovascular: Regular Rate, No Murmurs Abdominal: Normal Bowel Sounds, Soft, No Tenderness Extremities: No Clubbing, No Cyanosis Skin: No Rashes Neuro: Normal Gait, Normal Speech Psych/Mental Status: Mental Status NL Discharge Home Medications Reviewed and agree with Discharge Medication list on patient's Discharge Instruction sheet Instructions to Patient/Family Please see electronic discharge instructions given to patient. Clinical Quality Measures DVT/VTE Risk/Contraindication: Risk Factor Score Per Nursin RFS Level Per Nursing on Admit: 1=Low/No VTE PPX ERIC CRUZ DO Jun 10, 2020 06:58
[2020-06-10] MEDS ORDERED: PEN G BENZ (BICILLIN LA) 1.2 M UN/2 ML SYR IM ONE (07:00)
[2020-06-10 08:00] VITALS: BP 131/83
[2020-06-10] MEDS: PRENATAL VITAMIN 1 EA TAB PO SCH (08:01)
[2020-06-10] MEDS: DOCUSATE SODIUM 100 MG (COLACE) CAP PO SCH (08:01)
--- NOTE | 2020-06-10 08:02 | NUR ---
A.M. ASSESSMENT COMPLETED. VSS. PCN G GIVEN IM ORDERED IN RIGHT VG SITE. SITE CLEAR.
[2020-06-10 14:00] VITALS: BP 127/85
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
--- NOTE | 2020-06-10 17:35 | NUR ---
DISCHARGE INSTRUCTIONS REVIEWED WITH COPY TO PT. RXS GIVEN TO S.O. EARLIER TO GET FILLED. PT STATES HE WILL NOT RETURN UNTIL TOMORROW. PT HAS DENIES PAIN LAST 2 DAYS. STATES UNDERSTANDING OF ALL INSTRUCTIONS AND NEED TO HAVE PCN SHOTS ON MONDAY AND MONDAY INSTRUCTED.
[2020-06-10 18:00] VITALS: BP 127/85
--- NOTE | 2020-06-10 18:00 | NUR ---
DISMISSED FROM WS IN STABLE CONDITION. 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 ROOMING -IN INFORMATION GIVEN TO PT.
--- NOTE | 2020-06-11 15:08 | NUR ---
CM/SS follow up. CM/SS contacted DCF to check if report made by this sw was screened in. They reported that at this time the report was "not assigned" to anyone. CM/SS verified that it was not screened in. The worker stated "no". CM/SS contacted the Nurse in [facility] to give an update. Alem verbalized understanding.
== END 2020-06-10 18:00 | disposition home or self-care (01) | DRG 807 ==
LOC: LDRP 17:33
PROVIDERS: ADMIT Obstetrics & Gynecology; ATTEND Obstetrics & Gynecology
PROC: 10E0XZZ Delivery of Products of Conception, External Approach (ICD-10-PCS; principal; 2020-06-09)
PROC: 0W8NXZZ Division of Female Perineum, External Approach (ICD-10-PCS; 2020-06-09)
PROC: 3E033VJ Introduction of Other Hormone into Peripheral Vein, Percutaneous Approach (ICD-10-PCS; 2020-06-09)
DX: O98.12 Syphilis complicating childbirth (principal); Z37.0 Single live birth; A53.0 Latent syphilis, unspecified as early or late; Z3A.39 39 weeks gestation of pregnancy; Z23 Encounter for immunization
CPT/HCPCS: 36415; 85025; 86592; 86780; 86850; 86900; 86901; 90707; 90715

== ENCOUNTER → 2020-06-17 | Outpatient (CLI) | payer OTHER, BC, MEDICAID ==
[~2020-06-17] MED LIST changes: +ACET-93 PO; +DCS100C PO; +IBUP-1780 PO; +OXYC5TAB96 PO; +PEN G BENZ (BICILLIN LA) 1.2 M UN/2 ML SYR IM ONE; +PREN-142 PO
== END ==
LOC: WSo 17:16
PROVIDERS: ATTEND Obstetrics & Gynecology
DX: Z79.2 Long term (current) use of antibiotics (principal)
CPT/HCPCS: 96372

== ENCOUNTER 2020-12-04 05:36 | Outpatient (RCR) | payer OTHER, BC, MEDICAID ==
[~2020-12-04] VITALS: Ht 167.7 cm; Wt 89.1 kg
[~2020-12-04 05:36] MED LIST changes: +OXC5T PO; -OXYC5TAB96 PO; -PEN G BENZ (BICILLIN LA) 1.2 M UN/2 ML SYR IM ONE
[2020-12-07] MEDS ORDERED: IBUP-1773 PO (07:29)
== END 2020-12-04 11:18 | disposition home or self-care (01) ==
LOC: PREOP 05:36
PROVIDERS: ATTEND Obstetrics & Gynecology
DX: Z01.812 Encounter for preprocedural laboratory examination (principal); O02.1 Missed abortion; Z20.822 Contact with and (suspected) exposure to COVID-19
CPT/HCPCS: 87635

== ENCOUNTER 2020-12-08 11:57 | Emergency (ER) | payer OTHER, BC, MEDICAID ==
[~2020-12-08] VITALS: Ht 165 cm; Wt 88.8 kg
[~2020-12-08 11:57] MED LIST changes: +IBUP-1773 PO
--- NOTE | 2020-12-08 12:55 | ED GU-Female ---
General Chief Complaint: Female Reproductive Stated Complaint: VAGINAL BLEEDING Nursing Triage Note: Patient reports she had a d/c yesterday with Dr. Culp in [place], reports she was 11 weeks and had a miscarriage. She reports two previous uncomplicated full term pregnancies. She states she went back to work at [employer] today, states she does a lot of standing, walking, and heavy lifting. She reports she began bleeding heavily at 0900 and has saturated 4 pads since 0900. She states she has had some small clots, similar to when she is on her period. She reports some generalized cramping and a constant pain in her RLQ rated 6/10. She states she took 600 mg of ibprofen at 1100 today. Nursing Sepsis Screen: No Definite Risk Source: patient History of Present Illness Date Seen by Provider: Dec 08, 2020 Time Seen by Provider: 12:15 Initial Comments 25-year-old female presenting with vaginal bleeding and right-sided cramping. She had a D&C procedure for missed yesterday with Dr. Culp at [facility]. She was doing well and was released to work today with no restrictions. She states around 9 AM she started having vaginal bleeding and has gone through 4 pads since 9 AM. She states she also has had an odor from her vaginal area. He denies any pain with urination. She is concerned because she has not been able to get anyone from Dr. Culp's office to call her back. She came in to be evaluated here in the ED. Allergies and Home Medications Allergies Coded Allergies: No Known Drug Allergies (Unverified , 10/19/19) Home Medications Fluconazole 150 Mg Tablet, 150 MG PO ONCE Prescribed by: EDA HALE on 12/08/20 1347 Ibuprofen 600 Mg Tablet, 600 MG PO Q6H Prescribed by: MARISSA CULP on 12/07/20 5558 Patient Home Medication List Home Medication List Reviewed: Yes Review of Systems Review of Systems Constitutional: No chills, No dizziness, No fever EENTM: no symptoms reported Respiratory: no symptoms reported Cardiovascular: no symptoms reported Gastrointestinal: no symptoms reported Genitourinary: see HPI Musculoskeletal: no symptoms reported Skin: no symptoms reported Psychiatric/Neurological: Anxiety Past Jtsxmcf-Cgtnuv-Ybxpsb Hx Past Med/Social Hx: Reviewed Nursing Past Med/Soc Hx Patient Social History Alcohol Use: Denies Use Smoking Status: Never a Smoker 2nd Hand Smoke Exposure: No Recent Infectious Disease Expo: No Recent Hopitalizations: No Immunizations Up To Date Tetanus Booster (TDap): Unknown PED Vaccines UTD: Yes Seasonal Allergies Seasonal Allergies: No Past Medical History Surgeries: Yes (D/C) Respiratory: No Currently Using CPAP: No Currently Using BIPAP: No Cardiac: No Neurological: No Reproductive Disorders: No Sexually Transmitted Disease: Yes (History of Syphilis--treated) HIV/AIDS: No Genitourinary: No Gastrointestinal: No Musculoskeletal: No Endocrine: No HEENT: No Cancer: No Psychosocial: No Integumentary: No Blood Disorders: No Adverse Reaction/Blood Tranf: No Family Medical History Patient reports no known family medical history. Physical Exam Vital Signs Vital Signs - First Documented 12/08/20 12:05 Temp 37.3 Pulse 81 Resp 20 B/P (MAP) 143/78 (99) Pulse Ox 100 O2 Delivery Room Air Capillary Refill : Less Than 3 Seconds Height, Weight, BMI Height: '" Weight: lbs. oz. kg; 32.00 BMI Method: General Appearance: WD/WN, mild distress (anxious) HEENT: PERRL/EOMI, pharynx normal Neck: non-tender, supple, normal inspection Cardiovascular: normal peripheral pulses, regular rate, rhythm Respiratory: chest non-tender, lungs clear, normal breath sounds Gastrointestinal: soft, no pulsatile mass Pelvic: normal external exam, tender adnexa (right greater than left), tender uterus, vaginal bleeding (pooling in the vaginal vault but no heavy bleeding) Extremities: normal range of motion, normal capillary refill Neurologic/Psychiatric: public speaking professor II-XII nml as tested, alert, oriented x 3, other (anxious) Skin: normal color, warm/dry Progress/Results/Core Measures Suspected Sepsis Recent Fever Within 48 Hours: No Infection Criteria Present: None New/Unexplained Altered Menta: No Sepsis Screen: No Definite Risk SIRS Temperature: Pulse: 81 Respiratory Rate: 20 Blood Pressure 143 /78 Mean: 99 Results/Orders Lab Results Laboratory Tests Test 12/08/20 12:45 Range/Units Urine Color RED H Urine Clarity BLOODY H Urine pH 6.5 5-9 Urine Specific Ralph 1.020 1.016-1.022 Urine Protein TRACE H NEGATIVE Urine Glucose (UA) NEGATIVE NEGATIVE Urine Ketones NEGATIVE NEGATIVE Urine Nitrite NEGATIVE NEGATIVE Urine Bilirubin NEGATIVE NEGATIVE Urine Urobilinogen NORMAL < = 1.0 MG/DL Urine Leukocyte Esterase TRACE H NEGATIVE Urine RBC (Auto) 3+ H NEGATIVE Urine RBC >100 H /HPF Urine WBC RARE /HPF Urine Squamous Epithelial Cells 0-2 /HPF Urine Crystals NONE /LPF Urine Bacteria NEGATIVE /HPF Urine Casts NONE /LPF Urine Mucus NEGATIVE /LPF Urine Culture Indicated NO Micro Results Microbiology 12/08/20 Wet Prep - Final, Complete My Orders Orders - EDA HALE MD Ua Culture If Indicated (12/08/20 12:49) Wet Prep (12/08/20 12:55) Vital Signs/I&O 12/08/20 12/08/20 12:05 13:55 Temp 37.3 Pulse 81 79 Resp 20 16 B/P (MAP) 143/78 (99) 124/73 Pulse Ox 100 100 O2 Delivery Room Air Room Air Capillary Refill : Less Than 3 Seconds Blood Pressure Mean: 99 Progress Note #1: Progress Note check urine and pelvic exam with wet mount. Then will try to check in with Dr. Culp or whoever is chronometer tester for him. Progress Note #2: Progress Note Her urinalysis showed blood but no signs of infection. Wet mount had trace amount of yeast that otherwise no infection. Her pelvic exam was showing some pooling of blood in the vaginal vault but there is no heavy active bleeding. Discussed with Dr. CULP over the phone at 1317 and reviewed findings with him. He stated that it was not unusual for the patient to have some increased pain especially with her being more active going back to work. He stated he had advised her to be off work to allow things to heal and rest. She had told him she wanted to go back to work so that she be less likely to concentrate and worry about the miscarriage. She also had refused any stronger pain medication because they all make her sick and feel worse. He recommended with her normal vital signs and not having copious amounts of bleeding to have her rest and take time off work. Off her pain medicine again for 24 to 48 hours. Follow-up for worsening pain, increasing bleeding, fever or chills. Departure Impression Primary Impression: Acute pelvic pain, female Additional Impressions: S/P dilation and curettage Vaginal bleeding Yeast vaginitis Disposition: 01 HOME, SELF-CARE Condition: Stable Departure-Patient Inst. Decision time for Depature: 13:44 Referrals: NO,LOCAL PHYSICIAN (PCP/Family) Primary Care Physician Patient Instructions: Dilation and Curettage (DC) Add. Discharge Instructions: Try to rest and take it easy for the next few days. Use Ibuprofen and Acetaminophen to help with pain control. If you have worsening pain or increasing symptoms check back with Dr. Culp and his clinic Return to work on Monday unless you have more problems before then. Take the Diflucan (Fluconazole) pill to treat for yeast infection and see if that also helps with your vaginal odor and pain. All discharge instructions reviewed with patient and/or family. Voiced understanding. Scripts Fluconazole (Fluconazole) 150 Mg Tablet 150 MG PO ONCE for Yeast infection for 1 Day, #1 TAB 0 Refills Prov: EDA HALE MD 12/08/20 Work/School Note: Work Release Form Date Seen in the Emergency Department: Dec 08, 2020 Return to Work: Dec 11, 2020 Restrictions: No Restrictions EDA HALE MD Dec 08, 2020 12:55
[2020-12-08 13:09] LABS: CLARITY,URINE BLOODY; COLOR,URINE RED
[2020-12-08 13:10] LABS: BACTERIA,URINE NEGATIVE /HPF; BILIRUBIN,URINE NEGATIVE (NEGATIVE); GLUCOSE, URINE (UA) NEGATIVE (NEGATIVE); KETONES,URINE NEGATIVE (NEGATIVE); LEUKOCYTE ESTERASE ,URINE TRACE (NEGATIVE); NITRITE,URINE NEGATIVE (NEGATIVE); PH,URINE 6.5 (5-9); PROTEIN,URINE TRACE (NEGATIVE); RBC,URINE >100 /HPF; SQUAMOUS EPITHELIAL CELL,UR 0-2 /HPF; WBC,URINE RARE /HPF
[2020-12-08] MEDS ORDERED: FLUC150T2 PO (13:47)
[2020-12-08 13:55] VITALS: BP 124/73
== END 2020-12-08 13:55 | disposition home or self-care (01) ==
LOC: EDUNIT# 11:57 → ER FS 12:00
DX: N93.9 Abnormal uterine and vaginal bleeding, unspecified (principal); B37.3 Candidiasis of vulva and vagina
CPT/HCPCS: 81000; 87210; 99284

== ENCOUNTER 2021-03-22 20:15 | Emergency (ER) | payer OTHER, BC, MEDICAID ==
[~2021-03-22] VITALS: Ht 165.1 cm; Wt 84.5 kg
[~2021-03-22 20:15] MED LIST changes: +FLUC150T2 PO
--- NOTE | 2021-03-22 20:25 | ED GU-Female ---
General Stated Complaint: APPROX 9 WKS PREG/VAG BLEEDING Source: patient History of Present Illness Date Seen by Provider: Mar 22, 2021 Time Seen by Provider: 20:25 Initial Comments PT ARRIVES VIA POV FROM HOME C/O VAGINAL BLEEDING AND CRAMPING --BEGAN 1 HOUR AGO BLOOD ON TISSUE WITH WIPING ONLY, HAS NOT USED ANY PADS PT HAD MISCARRIAGE AND D&C IN NOVEMBER-12/07/20, HAD PERIOD 01/14/21 AND NONE SINCE THEN HAS NOT HAD ANY OB CARE YET, BUT DID HAVE LAB WORK DONE AT DR. 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 Allergies and Home Medications Allergies Coded Allergies: No Known Drug Allergies (Unverified , 10/19/19) Home Medications Fluconazole 150 Mg Tablet, 150 MG PO ONCE Prescribed by: EDA HALE on 12/08/20 1347 Ibuprofen 600 Mg Tablet, 600 MG PO Q6H Prescribed by: MARISSA CULP on 12/07/20 0729 Patient Home Medication List Home Medication List Reviewed: Yes Review of Systems Review of Systems Constitutional: no symptoms reported Respiratory: no symptoms reported Cardiovascular: no symptoms reported Gastrointestinal: see HPI Genitourinary: see HPI : Yes LMP: Jan 14, 2021 Musculoskeletal: no symptoms reported Skin: no symptoms reported Psychiatric/Neurological: No Symptoms Reported Endocrine: No Symptoms Reported Hematologic/Lymphatic: No Symptoms Reported Past Adjnlyt-Gksnvv-Dhoexc Hx Past Med/Social Hx: Reviewed and Corrections made Patient Social History Alcohol Use: Denies Use Drug of Choice: DENIES Smoking Status: Never a Smoker 2nd Hand Smoke Exposure: No Recent Hopitalizations: No Immunizations Up To Date Tetanus Booster (TDap): Unknown PED Vaccines UTD: Yes Seasonal Allergies Seasonal Allergies: No Past Medical History Surgeries: Yes (D&C 12/07/20) Respiratory: No Currently Using CPAP: No Currently Using BIPAP: No Cardiac: No Neurological: No : Yes Last Menstrual Period: Jan 14, 2021 Hx : 4 Hx Para: 2 Hx Total # of Abortions (Sp): 1 (D&C 12/07/20) Reproductive Disorders: No Sexually Transmitted Disease: Yes (History of Syphilis--treated) HIV/AIDS: No Genitourinary: No Gastrointestinal: No Musculoskeletal: No Endocrine: No HEENT: No Cancer: No Psychosocial: No Integumentary: No Blood Disorders: No Adverse Reaction/Blood Tranf: No Family Medical History Patient reports no known family medical history. Physical Exam Vital Signs Vital Signs - First Documented 03/22/21 20:23 Temp 36.5 Pulse 111 Resp 16 B/P (MAP) 148/89 (108) Pulse Ox 100 O2 Delivery Room Air Capillary Refill : Height, Weight, BMI Height: '" Weight: lbs. oz. kg; 32.00 BMI Method: General Appearance: WD/WN, no apparent distress Respiratory: normal breath sounds Gastrointestinal: non tender, soft Pelvic: normal external exam, normal adnexa, no cerv. motion tender, no masses; No tender w/ cervical motion, No tender adnexa; tender uterus; No vaginal bleeding; other (NO BLOOD IN VAGINA OR AT CERVIX. 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 nml as tested, no motor/sensory deficits, alert, normal mood/affect, oriented x 3 Skin: normal color, warm/dry Progress/Results/Core Measures Suspected Sepsis SIRS Temperature: Pulse: Respiratory Rate: Laboratory Tests 03/22/21 20:48: White Blood Count 11.6H Blood Pressure / Mean: Laboratory Tests 03/22/21 20:48: Platelet Count 419H Results/Orders Lab Results Laboratory Tests Test 03/22/21 20:48 03/22/21 21:04 Range/Units White Blood Count 11.6 H 4.3-11.0 10^3/uL Red Blood Count 5.04 3.80-5.11 10^6/uL Hemoglobin 14.0 11.5-16.0 g/dL Hematocrit 43 35-52 % Mean Corpuscular Volume 85 80-99 fL Mean Corpuscular Hemoglobin 28 25-34 pg Mean Corpuscular Hemoglobin Concent 33 32-36 g/dL Red Cell Distribution Width 12.9 10.0-14.5 % Platelet Count 419 H 130-400 10^3/uL Mean Platelet Volume 9.0 9.0-12.2 fL Human Chorionic Gonadotropin, Quant 66323 H <5 MIU/ML Urine Color YELLOW Urine Clarity CLEAR Urine pH 6.5 5-9 Urine Specific [place] <=1.005 1.016-1.022 Urine Protein NEGATIVE NEGATIVE Urine Glucose (UA) NEGATIVE NEGATIVE Urine Ketones NEGATIVE NEGATIVE Urine Nitrite NEGATIVE NEGATIVE Urine Bilirubin NEGATIVE NEGATIVE Urine Urobilinogen 0.2 < = 1.0 MG/DL Urine Leukocyte Esterase NEGATIVE NEGATIVE Urine RBC (Auto) NEGATIVE NEGATIVE Urine RBC NONE /HPF Urine WBC NONE /HPF Urine Squamous Epithelial Cells 0-2 /HPF Urine Crystals NONE /LPF Urine Bacteria NEGATIVE /HPF Urine Casts NONE /LPF Urine Mucus NEGATIVE /LPF Urine Culture Indicated NO My Orders Orders - JUAREZ STOCK DO Cbc No Diff (03/22/21 20:25) Hcg,Quantitative (03/22/21 20:25) Ua Culture If Indicated (03/22/21 21:00) Vital Signs/I&O 03/22/21 20:23 Temp 36.5 Pulse 111 Resp 16 B/P (MAP) 148/89 (108) Pulse Ox 100 O2 Delivery Room Air Capillary Refill : Progress Note : Progress Note BLOOD TYPE B+ NO BLEEDING AND NO CRAMPING DURING ER STAY UNABLE TO OBTAIN HEART TONES BY DOPPLER NO ULTRASOUND AVAILABLE AT THIS HOUR Departure Impression Primary Impression: Threatened in early Disposition: 01 HOME, SELF-CARE Condition: Stable Departure-Patient Inst. Decision time for Depature: 21:30 Referrals: MARISSA CULP DO (PCP/Family) Primary Care Physician Patient Instructions: Bleeding in Early ED Add. Discharge Instructions: HOME, REST NOTHING IN VAGINA--NO TAMPONS, DOUCHING OR INTERCOURSE TYLENOL NEEDED FOR PAIN FOLLOW UP WITH DR. CULP IN 2-3 DAYS FOR FURTHER CARE--CALL IN AM FOR APPOINTMENT JUAREZ STOCK DO Mar 22, 2021 20:25
[2021-03-22 20:58] LABS: HEMATOCRIT 43 % (35-52); MEAN CORPUSCULAR HEMOGLOBIN 28 pg (25-34); MEAN CORPUSCULAR HGB CONC 33 g/dL (32-36); MEAN CORPUSCULAR VOLUME 85 fL (80-99); PLATELET COUNT 419 10^3/uL (130-400); WHITE BLOOD COUNT 11.6 10^3/uL (4.3-11.0)
[2021-03-22 21:10] LABS: BILIRUBIN,URINE NEGATIVE (NEGATIVE); CLARITY,URINE CLEAR; COLOR,URINE YELLOW; GLUCOSE, URINE (UA) NEGATIVE (NEGATIVE); KETONES,URINE NEGATIVE (NEGATIVE); LEUKOCYTE ESTERASE ,URINE NEGATIVE (NEGATIVE); NITRITE,URINE NEGATIVE (NEGATIVE); PH,URINE 6.5 (5-9); PROTEIN,URINE NEGATIVE (NEGATIVE)
[2021-03-22 21:20] LABS: BACTERIA,URINE NEGATIVE /HPF; SQUAMOUS EPITHELIAL CELL,UR 0-2 /HPF
[2021-03-22 21:36] VITALS: BP 124/79
== END 2021-03-22 21:36 | disposition home or self-care (01) ==
LOC: EDUNIT# 20:15 → ER 20:16
DX: O20.0 Threatened abortion (principal); Z3A.09 9 weeks gestation of pregnancy
CPT/HCPCS: 36415; 81000; 84702; 85027

== ENCOUNTER 2021-03-24 18:46 | Emergency (ER) | payer OTHER, BC, MEDICAID ==
[~2021-03-24] VITALS: Ht 165.1 cm; Wt 80.0 kg
[2021-03-24 19:32] LABS: BASOPHILS % (AUTO) 0 % (0-10); EOSINOPHILS # (AUTO) 0.1 10^3/uL (0.0-0.3); EOSINOPHILS % (AUTO) 1 % (0-10); HEMATOCRIT 41 % (35-52); HEMOGLOBIN 13.4 g/dL (11.5-16.0); LYMPHOCYTES # (AUTO) 3.5 10^3/uL (1.0-4.0); LYMPHOCYTES % (AUTO) 29 % (12-44); MEAN CORPUSCULAR HEMOGLOBIN 28 pg (25-34); MEAN CORPUSCULAR HGB CONC 33 g/dL (32-36); MEAN CORPUSCULAR VOLUME 86 fL (80-99); MEAN PLATELET VOLUME 8.8 fL (9.0-12.2); MONOCYTES # (AUTO) 0.6 10^3/uL (0.0-1.0); MONOCYTES % (AUTO) 5 % (0-12); NEUTROPHILS # (AUTO) 7.9 10^3/uL (1.8-7.8); NEUTROPHILS % (AUTO) 65 % (42-75); PLATELET COUNT 365 10^3/uL (130-400); WHITE BLOOD COUNT 12.1 10^3/uL (4.3-11.0)
--- NOTE | 2021-03-24 19:50 | ED GU-Female ---
General Chief Complaint: OB < 20 WEEKS Stated Complaint: 9 WKS PREG - CRAMPING / SPOTTING Nursing Triage Note: Pt arrival to ER with complaint of spotting x4 days. PT states that she is and less than 20 weeks. LMP 01/14/21 Nursing Sepsis Screen: No Definite Risk Source: patient History of Present Illness Date Seen by Provider: Mar 24, 2021 Time Seen by Provider: 19:10 Initial Comments PT ARRIVES VIA POV FROM HOME C/O PINK DISCHARGE--ON TISSUE WITH WIPING ONLY, HAS NOT USED ANY PADS., HAS HAD ON SAME PANTI-LINER ALL DAY AND NO BLOOD ON IT C/O SLIGHT CRAMPING OFF AND ON PT SEEN HERE 03/22/21 FOR SAME PT HAS NOT ATTEMPTED TO FOLLOW UP WITH DR. CULP ADVISED. HAD FIRST OB VISIT SCHEDULED FOR 04/01/21. NO NAUSEA/VOMITING NO FEVER NO URINARY SYMPTOMS SYMPTOMS NO DIFFERENT TODAY Allergies and Home Medications Allergies Coded Allergies: No Known Drug Allergies (Unverified , 10/19/19) Home Medications Fluconazole 150 Mg Tablet, 150 MG PO ONCE Prescribed by: EDA HALE on 12/08/20 1347 Ibuprofen 600 Mg Tablet, 600 MG PO Q6H Prescribed by: MARISSA CULP on 12/07/20 0729 Patient Home Medication List Home Medication List Reviewed: Yes Review of Systems Review of Systems Constitutional: no symptoms reported Respiratory: no symptoms reported Cardiovascular: no symptoms reported Gastrointestinal: no symptoms reported Genitourinary: see HPI : Yes Musculoskeletal: no symptoms reported Skin: no symptoms reported Past Rbiidgy-Ocrthm-Yrpmqd Hx Past Med/Social Hx: Reviewed and Corrections made Patient Social History Alcohol Use: Denies Use Drug of Choice: DENIES Smoking Status: Never a Smoker 2nd Hand Smoke Exposure: No Recent Infectious Disease Expo: No Recent Hopitalizations: No Immunizations Up To Date Tetanus Booster (TDap): Unknown PED Vaccines UTD: Yes Seasonal Allergies Seasonal Allergies: No Past Medical History Surgeries: Yes (D&C 12/07/20) Respiratory: No Currently Using CPAP: No Currently Using BIPAP: No Cardiac: No Neurological: No Reproductive Disorders: No Sexually Transmitted Disease: Yes (History of Syphilis--treated) HIV/AIDS: No Genitourinary: No Gastrointestinal: No Musculoskeletal: No Endocrine: No HEENT: No Cancer: No Psychosocial: No Integumentary: No Blood Disorders: No Adverse Reaction/Blood Tranf: No Family Medical History Patient reports no known family medical history. Physical Exam Vital Signs Vital Signs - First Documented 03/24/21 03/24/21 18:53 20:27 Temp 36.7 Pulse 90 Resp 18 B/P (MAP) 136/94 (108) Pulse Ox 98 O2 Delivery Room Air Capillary Refill : Less Than 3 Seconds Height, Weight, BMI Height: '" Weight: lbs. oz. kg; 29.00 BMI Method: General Appearance: WD/WN, no apparent distress Cardiovascular: regular rate, rhythm, no murmur Respiratory: normal breath sounds Gastrointestinal: non tender, soft Pelvic: normal external exam, no cerv. motion tender, no masses; No vaginal bleeding; other (NO BLOOD IN CANAL, CERVIX CLOSED. VERY SCANT AMOUNT OF NORMAL THIN, WHITE DISCHARGE. ) Extremities: normal inspection Neurologic/Psychiatric: alert, oriented x 3 Skin: normal color, warm/dry Progress/Results/Core Measures Suspected Sepsis Recent Fever Within 48 Hours: No Infection Criteria Present: None New/Unexplained Altered Menta: No Sepsis Screen: No Definite Risk SIRS Temperature: Pulse: 90 Respiratory Rate: 18 Laboratory Tests 03/24/21 19:22: White Blood Count 12.1H Blood Pressure 136 /94 Mean: 108 Laboratory Tests 03/24/21 19:22: Platelet Count 365 Results/Orders Lab Results Laboratory Tests Test 03/24/21 19:22 Range/Units White Blood Count 12.1 H 4.3-11.0 10^3/uL Red Blood Count 4.76 3.80-5.11 10^6/uL Hemoglobin 13.4 11.5-16.0 g/dL Hematocrit 41 35-52 % Mean Corpuscular Volume 86 80-99 fL Mean Corpuscular Hemoglobin 28 25-34 pg Mean Corpuscular Hemoglobin Concent 33 32-36 g/dL Red Cell Distribution Width 12.7 10.0-14.5 % Platelet Count 365 130-400 10^3/uL Mean Platelet Volume 8.8 L 9.0-12.2 fL Immature Granulocyte % (Auto) 0 % Neutrophils (%) (Auto) 65 42-75 % Lymphocytes (%) (Auto) 29 12-44 % Monocytes (%) (Auto) 5 0-12 % Eosinophils (%) (Auto) 1 0-10 % Basophils (%) (Auto) 0 0-10 % Neutrophils # (Auto) 7.9 H 1.8-7.8 10^3/uL Lymphocytes # (Auto) 3.5 1.0-4.0 10^3/uL Monocytes # (Auto) 0.6 0.0-1.0 10^3/uL Eosinophils # (Auto) 0.1 0.0-0.3 10^3/uL Basophils # (Auto) 0.0 0.0-0.1 10^3/uL Immature Granulocyte # (Auto) 0.0 0.0-0.1 10^3/uL Human Chorionic Gonadotropin, Quant H <5 MIU/ML My Orders Orders - JUAREZ STOCK DO Cbc With Automated Diff (03/24/21 19:10) Hcg,Quantitative (03/24/21 19:10) Vital Signs/I&O Capillary Refill : Less Than 3 Seconds Blood Pressure Mean: 108 Progress Note : Progress Note NO ULTRASOUND AVAILABLE AT THIS HOUR Departure Impression Primary Impression: Threatened in early Disposition: 01 HOME, SELF-CARE Condition: Stable Departure-Patient Inst. Decision time for Depature: 20:24 Referrals: MARISSA CULP DO (PCP/Family) Primary Care Physician Patient Instructions: Threatened Miscarriage (DC) Add. Discharge Instructions: LOTS OF FLUIDS TYLENOL NEEDED FOR PAIN FOLLOW UP WITH DR. CULP SCHEDULED OR SOONER IF WORSE All discharge instructions reviewed with patient and/or family. Voiced understanding. JUAREZ STOCK DO Mar 24, 2021 19:50
[2021-03-24 20:27] VITALS: BP 128/90
== END 2021-03-24 20:27 | disposition home or self-care (01) ==
LOC: EDUNIT# 18:46 → ER 18:48
DX: O20.0 Threatened abortion (principal); Z3A.09 9 weeks gestation of pregnancy
CPT/HCPCS: 36415; 84702; 85025; 99282

== ENCOUNTER 2021-06-11 09:17 | Emergency (ER) | payer OTHER, BC, MEDICAID ==
[~2021-06-11] VITALS: Ht 167.7 cm; Wt 88.5 kg
--- NOTE | 2021-06-11 09:23 | ED GU-Female ---
General Stated Complaint: CRAMPING/SUPRAPUBIC PRESSURE DURING PREG History of Present Illness Date Seen by Provider: Jun 11, 2021 Time Seen by Provider: 09:22 Initial Comments 25-year-old female presents with some cramping/suprapubic pressure. Patient reports that she is approximately 17 weeks . She is not having any abnormal vaginal discharge, she is not experiencing any vaginal bleeding. She is not having any vaginal pain. Patient reports she has been on her feet a lot the last 2 days working 12-hour days. She denies any other systemic complaints Allergies and Home Medications Allergies Coded Allergies: No Known Drug Allergies (Unverified , 10/19/19) Patient Home Medication List Home Medication List Reviewed: Yes Fluconazole (Fluconazole) 150 Mg Tablet, 150 MG PO ONCE Prescribed by: EDA HALE on 12/08/20 1347 Ibuprofen (Ibuprofen) 600 Mg Tablet, 600 MG PO Q6H Prescribed by: MARISSA CULP on 12/07/20 0729 Review of Systems Review of Systems Constitutional: No chills, No fever EENTM: no symptoms reported Respiratory: No cough, No short of breath Cardiovascular: no symptoms reported Gastrointestinal: no symptoms reported, abdominal pain; No nausea, No vomiting Genitourinary: no symptoms reported Musculoskeletal: no symptoms reported Skin: no symptoms reported Psychiatric/Neurological: No Symptoms Reported Endocrine: No Symptoms Reported Past Frrzsxy-Lugdbd-Kzxjaz Hx Immunizations Up To Date Tetanus Booster (TDap): Unknown PED Vaccines UTD: Yes Seasonal Allergies Seasonal Allergies: No Past Medical History Surgeries: Yes (D&C 12/07/20) Respiratory: No Currently Using CPAP: No Currently Using BIPAP: No Cardiac: No Neurological: No Reproductive Disorders: No Sexually Transmitted Disease: Yes (History of Syphilis--treated) HIV/AIDS: No Genitourinary: No Gastrointestinal: No Musculoskeletal: No Endocrine: No HEENT: No Cancer: No Psychosocial: No Integumentary: No Blood Disorders: No Adverse Reaction/Blood Tranf: No Family Medical History Patient reports no known family medical history. Physical Exam Vital Signs Vital Signs - First Documented 06/11/21 09:22 Temp 36.4 Pulse 96 Resp 16 B/P (MAP) 137/73 (94) Pulse Ox 100 O2 Delivery Room Air Capillary Refill : Height, Weight, BMI Height: '" Weight: lbs. oz. kg; 29.00 BMI Method: General Appearance: no apparent distress HEENT: PERRL/EOMI Neck: full range of motion, supple Cardiovascular: normal peripheral pulses, regular rate, rhythm Respiratory: lungs clear, normal breath sounds Gastrointestinal: non tender, soft Extremities: normal range of motion, non-tender, normal inspection Neurologic/Psychiatric: alert, normal mood/affect, oriented x 3 Skin: normal color, warm/dry Progress/Results/Core Measures Suspected Sepsis SIRS Temperature: Pulse: Respiratory Rate: Blood Pressure / Mean: Results/Orders Lab Results Laboratory Tests Test 06/11/21 09:22 Range/Units Urine Color YELLOW Urine Clarity SLIGHTLY CLOUDY Urine pH 7.0 5-9 Urine Specific [employer] 1.010 L 1.016-1.022 Urine Protein NEGATIVE NEGATIVE Urine Glucose (UA) NEGATIVE NEGATIVE Urine Ketones NEGATIVE NEGATIVE Urine Nitrite NEGATIVE NEGATIVE Urine Bilirubin NEGATIVE NEGATIVE Urine Urobilinogen 0.2 < = 1.0 MG/DL Urine Leukocyte Esterase 2+ H NEGATIVE Urine RBC (Auto) NEGATIVE NEGATIVE Urine RBC RARE /HPF Urine WBC 0-2 /HPF Urine Squamous Epithelial Cells 2-5 /HPF Urine Crystals NONE /LPF Urine Bacteria MODERATE H /HPF Urine Casts NONE /LPF Urine Mucus NEGATIVE /LPF Urine Yeast FEW H /HPF Urine Culture Indicated YES My Orders Orders - BRANDON OROZCO DO Ua Culture If Indicated (06/11/21 09:23) Vital Signs/I&O 06/11/21 09:22 Temp 36.4 Pulse 96 Resp 16 B/P (MAP) 137/73 (94) Pulse Ox 100 O2 Delivery Room Air Capillary Refill : Progress Note : Progress Note Patient with a urine that is concerning for a UTI along with a yeast infection. Recommend she start bwgq-gik-cvnplnt miconazole or similar vaginal yeast treatment. I will prescribe her Keflex. Patient is not having any vaginal discharge, vaginal pain or vaginal bleeding. Bedside ultrasound showed good movement and a heart rate in the 150s. Discussed with her that if her symptoms worsen, if she develops vaginal bleeding or worsening pain that she should follow-up with her OB or present to the ER. Patient stable discharged Departure Impression Primary Impression: Urinary tract infection Qualified Codes: N30.00 - Acute cystitis without hematuria Additional Impressions: Candidiasis of female genitalia 17 weeks gestation of Disposition: 01 HOME, SELF-CARE Condition: Stable Departure-Patient Inst. Referrals: MARISSA CULP DO (PCP/Family) Primary Care Physician Patient Instructions: Urinary Tract Infections in Add. Discharge Instructions: Follow-up with your primary care provider or retail specialist next week Return to the ER if you develop vaginal pain, vaginal discharge or vaginal bleeding. Scripts Cephalexin (Cephalexin) 500 Mg Tablet 500 MG PO QID, #20 TAB 0 Refills Prov: BRANDON OROZCO DO 06/11/21 BRANDON OROZCO DO Jun 11, 2021 09:23
--- OUTSIDE RECORDS SUMMARY | 2021-06-11 09:24 | XMS REPORT | Clinical Summary ---
Author Author [facility] Organization [facility] Address Unknown Phone Unavailable Care Team Providers Care Underwriting Director Name Role Phone PCP Unavailable Allergies Not on File Medications Not on file Active Problems Not on file Social History Date Tobacco Use Types Packs/Day Years Used Never Assessed Sex Assigned at Date Recorded Not on file Last Filed Vital Signs Not on file Plan of Treatment Not on file Results Not on filefrom Last 3 Months
--- OUTSIDE RECORDS SUMMARY | 2021-06-11 09:24 | XMS REPORT | Clinical Summary ---
Author Author [facility] Address Unknown Phone Unavailable Care Team Providers Care Blue Print Control Clerk Name Role Phone Cici Myrick MD PCP Allergies No known active allergies Medications End Date Status Medication Sig Dispensed Refills Start Date Active citalopram (CELEXA) 20 MG Take 20 mg by 0 tablet mouth daily. Active Pediatric Take 1 tablet 0 Jicbzpzi-Gnhodwrp-L by mouth (MULTIVITAMIN/IRON) CHEW daily. Active folic acid (FOLVITE) 1 MG Take 1 mg by 0 tablet mouth daily. Active QUEtiapine (SEROQUEL) 100 Start at 50mg 60 tablet 0 10/24/201 MG tablet po daily for 4 one week and then switch to 100mg po daily Active Problems Problem Noted Date Bipolar 1 disorder Depression Anxiety Estimated Date of Delivery Comments Yes 05/16/2014 Immunizations Name Administration Dates Next Due Td(adult), adsorbed 10/23/2010 Family History Medical History Relation Name Comments Depression Father Heart disease Paternal pat uncle Grandfather Hypertension Paternal Grandfather Hypertension Paternal Grandmother Relation Name Status Comments Father Paternal Grandfather Paternal Grandmother Social History Date Tobacco Use Types Packs/Day Years Used Never Smoker Smokeless Tobacco: Never Used Tobacco Cessation: Counseling Given: No Comments Alcohol Use Standard Drinks/Week No 0 (1 standard drink = 0.6 o z pure alcohol) Control Partners Comments Sexually Active Never Estimated Date of Delivery Comments Yes 05/16/2014 Sex Assigned at Date Recorded Not on file Last Filed Vital Signs Reading Time Taken Comments Vital Sign 106/78 10/23/2013 1:19 PM SOCIAL MEDIA ANALYST Blood Pressure 76 10/23/2013 1:19 PM SOCIAL MEDIA ANALYST Pulse - - Temperature - - Respiratory Rate - - Oxygen Saturation - - Inhaled Oxygen Concentration 68.1 kg (150 lb 3.2 oz) 10/23/2013 1:19 PM SOCIAL MEDIA ANALYST Weight 167.6 cm (5' 6") 10/23/2013 1:19 PM SOCIAL MEDIA ANALYST Height 24.24 10/23/2013 1:19 PM SOCIAL MEDIA ANALYST Body Mass Index Plan of Treatment Health Maintenance Due Date Last Done Comments Varicella Vaccines (1 of 1997 2 - 2-dose childhood series) HPV Vaccines (1 - 2-dose 2007 series) COVID-19 Vaccine (1) 2008 DTaP,Tdap,and Td Vaccines 10/24/2010 10/23/2010 (2 - Tdap) Hepatitis C Screening 2014 MMR Vaccines-Adult 2015 Cervical Cancer Screening 2017 Influenza Vaccine (#1) 2021 Pneumo-Vaccine: 65+Yrs (1 2061 of 1 - PPSV23) HIB Vaccines Aged Out No longer eligible based on patient's age to complete this topic IPV Vaccines Aged Out No longer eligible based on patient's age to complete this topic Meningococcal Vaccine Aged Out No longer eligib le based on patient's age to complete this topic Pneumo-Vaccine: Peds (0-5 Aged Out No longer el igible based on patient's age to Yrs) & At-Risk Patients complete this topic (6-64 Yrs) Rotavirus Vaccines Aged Out No longer eligible based on patient's age to complete this topic Results Not on filefrom Last 3 Months Insurance Type Payer Benefit Subscriber ID Effective Phone Address Plan / Dates Group [employer] K[employer] [address] [id number] 2005- [phone] [address] Present [address] [place] [address] Advance Directives For more information, please contact: [phone] 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
[2021-06-11 09:32] LABS: BILIRUBIN,URINE NEGATIVE (NEGATIVE); COLOR,URINE YELLOW; GLUCOSE, URINE (UA) NEGATIVE (NEGATIVE); KETONES,URINE NEGATIVE (NEGATIVE); LEUKOCYTE ESTERASE ,URINE 2+ (NEGATIVE); NITRITE,URINE NEGATIVE (NEGATIVE); PROTEIN,URINE NEGATIVE (NEGATIVE)
[2021-06-11 09:45] LABS: BACTERIA,URINE MODERATE /HPF; CLARITY,URINE SLIGHTLY CLOUDY; RBC,URINE RARE /HPF; WBC,URINE 0-2 /HPF
[2021-06-11 09:46] LABS: YEAST,URINE FEW /HPF
[2021-06-11] MEDS ORDERED: CEPH500T PO (09:55)
[2021-06-11 10:01] VITALS: BP 137/73
== END 2021-06-11 10:00 | disposition home or self-care (01) ==
LOC: EDUNIT# 09:17 → ER FS 09:19
DX: O23.42 Unspecified infection of urinary tract in pregnancy, second trimester (principal); B37.9 Candidiasis, unspecified; Z3A.17 17 weeks gestation of pregnancy
CPT/HCPCS: 81000; 87088; 99283

== ENCOUNTER → 2021-07-01 | Outpatient (CLI) | payer OTHER, BC, MEDICAID ==
[~2021-07-01] MED LIST changes: +CEPH500T PO; -DCS100C PO; +DOCU-239 PO
--- NOTE | 2021-07-01 17:36 | Diagnostic Imaging Report ---
INDICATION: Anatomical survey TECHNIQUE: Multiple real-time grayscale images were obtained over the gravid uterus. COMPARISON: None FINDINGS: There is a single living intrauterine in a cephalic presentation. The biometry correlates with gestational age of 20 weeks 3 days. There is normal volume amniotic fluid. Placenta is anterior. There is no previa. Heart rate is 153 bpm. The kidneys, bladder, stomach, brain, four-chamber heart, three-vessel cord, spine and cord insertion are normal in appearance. There is limited visualization of the facial features. IMPRESSION: Single living intrauterine with a sonographically estimated gestational age of 20 weeks 3 days and estimated date of confinement of 11/15/2021 Unremarkable anatomical survey apart from limited visualization of the facial features. Biometrical measurements are as follows: Biparietal 4.59 cm, age 20 weeks 0 days. Head circumference 17.75 cm, age 20 weeks 2 days. Abdominal circumference 15.13 cm, age 20 weeks 3 days. Femur length 3.38 cm, age 20 weeks 5 days. Sonographic estimate age: 20 weeks 3 days. Sonographic estimated date of delivery: 11/15/2021. Estimated Weight: 353 gm (+/- 52 gm). LMP percentile: 53%. heart rate: 153 beats per minute. number: 1 of 1. Dictated by: Dictated on workstation # [id number]
== END ==
LOC: RAD 15:15
PROVIDERS: ATTEND Nurse Practitioner Women's Health
DX: Z34.02 Encounter for supervision of normal first pregnancy, second trimester (principal)
CPT/HCPCS: 76805